=== PATIENT | male | born 1980 | race Caucasian/White ===

== ENCOUNTER → 2016-07-17 | Outpatient (CLI) | payer BC ==
[2016-07-17 07:21] LABS: ALANINE AMINOTRANSFERASE 101 U/L (21-72); ALBUMIN 4.4 g/dL (3.5-5.0); ALKALINE PHOSPHATASE 57 U/L (38-126); ANION GAP 12 (5-19); ASPARTATE AMINO TRANSFERASE 55 U/L (17-59); BILIRUBIN,TOTAL 0.8 mg/dL (0.2-1.3); BLOOD UREA NITROGEN 11 mg/dL (7-20); CALCIUM 9.7 mg/dL (8.4-10.2); CARBON DIOXIDE 29 mmol/L (22-30); CHLORIDE 103 mmol/L (98-107); CHOLESTEROL 159.89 mg/dL (0-200); CREATININE RESULT 0.79 mg/dL (0.52-1.25); Direct HDL 43 mg/dL (>40); GLUCOSE 118 mg/dL (75-110); POTASSIUM 4.5 mmol/L (3.6-5.0); SODIUM 144.1 mmol/L (137-145); TOTAL PROTEIN 7.1 g/dL (6.3-8.2); TRIGLYCERIDES 223 mg/dL (<150); URIC ACID 6.4 mg/dL (3.5-8.5)
[2016-07-17 07:31] LABS: DIRECT LDL 90 mg/dL (<100)
[2016-07-17 07:51] LABS: VLDL CHOLESTEROL 44.6 mg/dL (10-31)
== END ==
LOC: LAB 06:47
PROVIDERS: ATTEND Physician Assistant
DX: E79.0 Hyperuricemia without signs of inflammatory arthritis and tophaceous disease (principal); E78.2 Mixed hyperlipidemia
CPT/HCPCS: 36415; 80053; 80061; 84550

== ENCOUNTER → 2017-11-04 | Outpatient (CLI) | payer BC ==
[2017-11-04 11:32] LABS: ABSOLUTE EOSINOPHILS # (AUTO) 0.2 10^3/uL (0.0-0.6); ABSOLUTE LYMPHOCYTES (AUTO) 1.7 10^3/uL (0.5-4.7); ABSOLUTE MONOCYTES (AUTO) 0.5 10^3/uL (0.1-1.4); ABSOLUTE NEUT (AUTO) 3.7 10^3/uL (1.7-8.2); BASOPHILS % (AUTO) 0.5 % (0-2); EOSINOPHILS % (AUTO) 3.4 % (0-6); HEMATOCRIT 47.2 % (37.9-51.0); HEMOGLOBIN 16.2 g/dL (13.5-17.0); LYMPHOCYTES % (AUTO) 27.4 % (13-45); MEAN CORPUSCULAR HEMOGLOBIN 29.8 pg (27.0-33.4); MEAN CORPUSCULAR HGB CONC 34.2 g/dL (32.0-36.0); MEAN CORPUSCULAR VOLUME 87 fl (80-97); MONOCYTES % (AUTO) 8.4 % (3-13); PLATELET COUNT 186 10^3/uL (150-450); RED BLOOD COUNT 5.42 10^6/uL (4.35-5.55); RED CELL DISTRIBUTION WIDTH 13.3 % (11.5-14.0); SEGMENTED NEUTROPHILS % (AUTO) 60.3 % (42-78); TOTAL CELLS COUNTED % (AUTO) 100 %; WHITE BLOOD COUNT 6.2 10^3/uL (4.0-10.5)
[2017-11-04 11:45] LABS: ALANINE AMINOTRANSFERASE 163 U/L (21-72); ALKALINE PHOSPHATASE 62 U/L (38-126); ANION GAP 14 (5-19); ASPARTATE AMINO TRANSFERASE 85 U/L (17-59); BILIRUBIN,DIRECT 0.3 mg/dL (0.0-0.4); BILIRUBIN,TOTAL 0.8 mg/dL (0.2-1.3); BLOOD UREA NITROGEN 10 mg/dL (7-20); CALCIUM 10.2 mg/dL (8.4-10.2); CARBON DIOXIDE 26 mmol/L (22-30); CHLORIDE 105 mmol/L (98-107); CHOLESTEROL 151.02 mg/dL (0-200); GLUCOSE 125 mg/dL (75-110); POTASSIUM 4.3 mmol/L (3.6-5.0); SODIUM 145.4 mmol/L (137-145); TOTAL PROTEIN 7.6 g/dL (6.3-8.2); TRIGLYCERIDES 155 mg/dL (<150); URIC ACID 6.9 mg/dL (3.5-8.5)
[2017-11-04 11:55] LABS: DIRECT LDL 82 mg/dL (<100)
== END ==
LOC: OD 10:29
PROVIDERS: ATTEND Internal Medicine
DX: E78.2 Mixed hyperlipidemia (principal); E79.0 Hyperuricemia without signs of inflammatory arthritis and tophaceous disease; Z09 Encounter for follow-up examination after completed treatment for conditions other than malignant neoplasm
CPT/HCPCS: 36415; 80053; 80061; 84443; 84550; 85025

== ENCOUNTER → 2018-03-02 | Outpatient (CLI) | payer BC ==
[2018-03-02 10:34] LABS: ALANINE AMINOTRANSFERASE 114 U/L (21-72); ALBUMIN 4.8 g/dL (3.5-5.0); ALKALINE PHOSPHATASE 62 U/L (38-126); ANION GAP 16 (5-19); ASPARTATE AMINO TRANSFERASE 58 U/L (17-59); BILIRUBIN,DIRECT 0.2 mg/dL (0.0-0.4); BILIRUBIN,TOTAL 0.7 mg/dL (0.2-1.3); BLOOD UREA NITROGEN 11 mg/dL (7-20); CALCIUM 10.1 mg/dL (8.4-10.2); CARBON DIOXIDE 24 mmol/L (22-30); CHLORIDE 105 mmol/L (98-107); CHOLESTEROL 209.95 mg/dL (0-200); GLUCOSE 122 mg/dL (75-110); POTASSIUM 4.4 mmol/L (3.6-5.0); SODIUM 144.6 mmol/L (137-145); TOTAL PROTEIN 7.6 g/dL (6.3-8.2); TRIGLYCERIDES 264 mg/dL (<150); URIC ACID 8.8 mg/dL (3.5-8.5)
[2018-03-02 10:46] LABS: DIRECT LDL 118 mg/dL (<100)
[2018-03-02 10:47] LABS: VLDL CHOLESTEROL 52.8 mg/dL (10-31)
--- NOTE | 2018-03-02 12:43 | RADIOLOGY REPORT (SQ) ---
EXAM DESCRIPTION: U/S ABDOMEN COMPLETE W/O DOP COMPLETED DATE/TIME: 03/02/2018 10:38 am REASON FOR STUDY: NONALCOHOLIC STEATOHEPATITIS (BOYD) (K75.81) K75.81 NONALCOHOLIC STEATOHEPATITIS (BOYD) E78.2 MIXED HYPERLIPIDEMIA E79.0 HYPERURICEMIA W/O SIGNS OF INFLAM ARTHRIT AND TOPHACEO COMPARISON: 02/10/2014 TECHNIQUE: Dynamic and static grayscale images acquired of the abdomen and recorded on PACS. Additio nal selected color Doppler and spectral images recorded. LIMITATIONS: None. FINDINGS: PANCREAS: The head and body of the pancreas are of normal echogenicity. The tail is obsc ured by overlying bowel gas. LIVER: Fatty liver, stable finding. The liver measures 17.9 cm in length, at the upper limits of no rmal to slightly prominent in size. LIVER VASCULATURE: Normal directional flow of the main portal vein and hepatic veins. GALLBLADDER: Small 2.8 mm gallbladder polyp versus stone. The gallbladder wall measures 2.8 mm, norm al wall thickness. No pericholecystic fluid. ULTRASOUND-DETECTED FINNEY'S SIGN: Negative. INTRAHEPATIC DUCTS AND COMMON DUCT: CBD measures 3.9 mm in diameter, normal. The intrahepatic ducts normal caliber. No filling defects. INFERIOR VENA CAVA: Normal flow. AORTA: No aneurysm. RIGHT KIDNEY: The right kidney measures 12.3 cm in length, normal size. Normal echogenicity. No solid or suspicious masses. No hydronephrosis. No calcifications. LEFT KIDNEY: The left kidney measures 12.3 cm in length, normal size. Normal echogenicity. No so lid or suspicious masses. No hydronephrosis. No calcifications. SPLEEN: The spleen measures 12.3 cm, within the upper limits of normal size. No solid masses. PERITONEAL AND PLEURAL SPACES: No ascites or effusions. OTHER: No other significant finding. IMPRESSION: 1 Fatty liver, stable finding since the prior study dated 02/10/2014. 2 Small gallstone versus polyp. 3. No evidence of biliary obstruction. 4. The tail of the pancreas is obscured by overlying bowel gas. TECHNICAL DOCUMENTATION: JOB ID: [id number] [employer]- All Rights Reserved Reading location - IP/workstation name: [email or web address]
== END ==
LOC: RAD 09:43
PROVIDERS: ATTEND Physician Assistant
DX: K75.81 Nonalcoholic steatohepatitis (NASH) (principal); E78.2 Mixed hyperlipidemia; E79.0 Hyperuricemia without signs of inflammatory arthritis and tophaceous disease; R94.5 Abnormal results of liver function studies; R73.01 Impaired fasting glucose
CPT/HCPCS: 36415; 76700; 80053; 80061; 83036; 84550; 86235

== ENCOUNTER 2018-06-25 08:12 | Inpatient (IN) | payer BC ==
--- NOTE | 2018-06-25 08:58 | ER Document Report ---
HPI - HPI Time Seen by Provider: 06/25/18 08:29 Pain Level: 3 Notes: 38-year-old male with a history of prediabetes presents the ED with complaints of polydipsia polyuria, dry mouth and insomnia started approximately 2 weeks ago with myalgias that started yesterday. Patient has a history of insomnia however states that his insomnia has become worse take this. Patient reports he has a dry cough. Afebrile. No [id number] medications have been tried. Patient was told by his primary care provider that he is a prediabetic however does not take any medications for this. Denies fevers, chills, chest pain,palpitations, shortness of breath, dyspnea, nausea, vomiting, diarrhea, abdominal pain, hematuria,blurred vision, double vision, loss of vision, speech changes, LH, dizziness, syncope, headaches, wheezing, ST, URI, neck pain, bowel or bladder dysfunction, saddle anesthesia, numbness or tingling in bilateral upper or lower extremities equally, muscle paralysis, weakness in bilateral upper or lower extremities equally or rash. Past Medical History - Social History Smoking Status: Unknown if Ever Smoked Family History: Reviewed & Not Pertinent Patient has suicidal ideation: No Patient has homicidal ideation: No Pulmonary Medical History: Reports: Hx Asthma Neurological Medical History: Reports: Hx Migraine Renal/ Medical History: Denies: Hx Peritoneal Dialysis Past Surgical History: Reports: Hx Oral Surgery - wisdom, Hx Tonsillectomy - Immunizations Hx Diphtheria, Pertussis, Tetanus Vaccination: No Vertical Provider Document - INFECTION CONTROL TRAVEL OUTSIDE OF THE [place] IN LAST 30 DAYS: No Course - Re-evaluation Re-evalutation: 06/25/18 09:03 cbc cmp urinalysis ekg cxr venous blood gas 06/25/18 09:03 - Vital Signs Vital signs: Temp Pulse Resp BP Pulse Ox 97.5 F 124 H 16 151/110 H 98 06/25/18 08:15 06/25/18 08:15 06/25/18 08:15 06/25/18 08:15 06/25/18 08:15 Discharge - Discharge Referrals: ORIN WAY MD [Primary Care Provider] - Follow up as needed
[2018-06-25] MEDS ORDERED: NORMAL SALINE 1000 ML 1,000 ML IV ONE ×2 (08:59→12:45)
--- NOTE | 2018-06-25 09:06 | ER Document Report ---
ED General - General Chief Complaint: Flu Symptoms Stated Complaint: WEAKNESS, DRY MOUTH, CANT SLEEP Time Seen by Provider: 06/25/18 08:29 Mode of Arrival: Ambulatory TRAVEL OUTSIDE OF THE [place] IN LAST 30 DAYS: No - HPI Notes: 38-year-old male with a history of prediabetes presents the ED with complaints of polydipsia polyuria, dry mouth, dry cough and insomnia started approximately 2 weeks ago with myalgias that started yesterday. reports he does not understand why he has dry mouth though he drinks "non-stop" especially over the last two days. no fevers but reports chills. worse with time, nothing makes better. unsure if he has been eating more lately. Pt is concerned about his insomnia. states that his insomnia has become worse over last week. Reports he has a prescription of Ambien but does not take it due to prolonged drowsiness. has not tried any No [id number] medications., Denies chest pain,palpitations, shortness of breath, dyspnea, nausea, vomiting, diarrhea, abdominal pain, hematuria,blurred vision, double vision, loss of vision, speech changes, LH, dizziness, syncope, headaches, wheezing, ST, URI, neck pain, bowel or bladder dysfunction, saddle anesthesia, numbness or tingling in bilateral upper or lower extremities equally, muscle paralysis, rash. - Related Data Allergies/Adverse Reactions: Penicillins Allergy (Verified 12/12/13 07:37) Sulfa (Sulfonamide Antibiotics) Allergy (Verified 12/12/13 07:37) Past Medical History - General Information source: Patient, Relative - Social History Smoking Status: Unknown if Ever Smoked Family History: Reviewed & Not Pertinent Patient has suicidal ideation: No Patient has homicidal ideation: No Pulmonary Medical History: Reports: Hx Asthma Neurological Medical History: Reports: Hx Migraine Renal/ Medical History: Denies: Hx Peritoneal Dialysis Past Surgical History: Reports: Hx Oral Surgery - wisdom, Hx Tonsillectomy - Immunizations Hx Diphtheria, Pertussis, Tetanus Vaccination: No Review of Systems - Review of Systems Constitutional: See HPI, Malaise, Weakness EENT: No symptoms reported Cardiovascular: No symptoms reported Respiratory: See HPI Gastrointestinal: No symptoms reported Genitourinary: See HPI, Frequency Male Genitourinary: No symptoms reported Musculoskeletal: No symptoms reported Skin: No symptoms reported Hematologic/Lymphatic: No symptoms reported Neurological/Psychological: No symptoms reported Physical Exam - Vital signs Vitals: Temp Pulse Resp BP Pulse Ox 97.5 F 124 H 16 151/110 H 98 06/25/18 08:15 06/25/18 08:15 06/25/18 08:15 06/25/18 08:15 06/25/18 08:15 - Notes Notes: PHYSICAL EXAMINATION: GENERAL: Well-appearing, well-nourished and in no acute distress. HEAD: Atraumatic, normocephalic. EYES: Pupils equal round and reactive to light, extraocular movements intact, sclera anicteric, conjunctiva are normal. ENT: Bilateral TMs defusion, intact no erythema. nares patent, boggy bilaterally., oropharynx clear without exudates. dry mucous membranes. NECK: Normal range of motion, supple without lymphadenopathy LUNGS: Breath sounds clear to auscultation bilaterally and equal. No wheezes rales or rhonchi. HEART: Sinus tachycardia. normal rhythm without murmurs ABDOMEN: Soft, nontender, nondistended abdomen. No guarding, no rebound. No masses appreciated. Musculoskeletal: Normal range of motion, no pitting or edema. No cyanosis. NEUROLOGICAL: Cranial nerves grossly intact. Normal speech, normal gait. Normal sensory, motor exams PSYCH: Normal mood, normal affect. SKIN: Warm, Dry, normal turgor, no rashes or lesions noted. Course - Re-evaluation Re-evalutation: 06/25/18 09:05 38-year-old male presents to the ED with sinus tachycardia, afebrile in mild distress. CBC shows a leukocytosis of 15.7 with shift, patient does show to have metabolic acidosis with a pH of 7.16, bicarbonate 10.3 carbon dioxide 29.5, creatinine is 1.31 with a BUN of 29, potassium is 6.9, ALT elevated at 91, initial troponin less than 0.012, CK is 170. Urinalysis shows a glucose >500, ketones, no leuks or nitrates noted. Chest x-ray negative for acute STEMI, no ST segment elevation, serum glucose 864. IV fluids initiated, calcium gluconate given for hyperkalemia as well as insulin drip for hyperglycemia. Patient's tachycardia did decrease after IV hydration. Pt is afebrile. chest x-ray negative for acute pneumonia or other radiological findings. Patient in no acute diabetes ketoacidosis, does not have a history of DKA or diabetes. Patient is not on any oral systemic medication. Consulted with Dr. Rolf Mac, hospitalist for admission into ICU at 1130, will admit to medical unit for further treatment and management of DKA, hypoglycemia,hyperkalemia, tachycardia. Patient made aware of this admission, agreed with plan of care. All questions and concerns answered by this provider. - Vital Signs Vital signs: Temp Pulse Resp BP Pulse Ox 99.0 F 115 H 22 H 141/95 H 97 06/25/18 16:00 06/25/18 13:56 06/25/18 14:00 06/25/18 13:56 06/25/18 14:00 - Laboratory Result Diagrams: 06/25/18 09:54 06/25/18 14:52 Laboratory results interpreted by me: 06/25/18 06/25/18 06/25/18 09:54 09:54 09:54 WBC 15.7 H RBC 5.97 H Hgb 17.9 H Hct 55.1 H Seg Neutrophils % 89.2 H Lymphocytes % 6.0 L Absolute Neutrophils 14.0 H VBG pH 7.16 L* VBG pCO2 29.5 L VBG HCO3 10.3 L Potassium 6.8 H* Chloride 97 L Carbon Dioxide 8 L* Anion Gap 35 H BUN 29 H Creatinine 1.31 H Glucose 864 H* POC Glucose Calcium 11.3 H Phosphorus Magnesium Direct Bilirubin 0.6 H ALT 91 H Alkaline Phosphatase 130 H Total Protein 9.1 H Albumin 5.8 H Urine Glucose (UA) Urine Ketones Urine Blood 06/25/18 06/25/18 06/25/18 09:54 10:28 12:56 WBC RBC Hgb Hct Seg Neutrophils % Lymphocytes % Absolute Neutrophils VBG pH VBG pCO2 VBG HCO3 Potassium Chloride Carbon Dioxide Anion Gap BUN Creatinine Glucose POC Glucose 485 H* Calcium Phosphorus 6.6 H Magnesium 3.2 H Direct Bilirubin ALT Alkaline Phosphatase Total Protein Albumin Urine Glucose (UA) >=500 H Urine Ketones 80 H Urine Blood MODERATE H Discharge - Discharge Clinical Impression: Hyperkalemia DKA (diabetic ketoacidoses) Qualifiers: Diabetes mellitus type: other specified (including TIFFANY) Diabetes mellitus complication detail: without coma Qualified Code(s): E13.10 - Other specified diabetes mellitus with ketoacidosis without coma Condition: Stable Disposition: ADMITTED INPATIENT Admitting Provider: Hospitalist - Dr. Rolf Mac Unit Admitted: ICU
[2018-06-25 09:19] LABS: A TYPE INFLUENZA AG NEGATIVE (NEGATIVE); B INFLUENZA AG NEGATIVE (NEGATIVE)
--- NOTE | 2018-06-25 09:38 | RADIOLOGY REPORT (SQ) ---
EXAM DESCRIPTION: CHEST SINGLE VIEW COMPLETED DATE/TIME: 06/25/2018 9:28 am REASON FOR STUDY: tachycardia, weakness COMPARISON: None. NUMBER OF VIEWS: One view. TECHNIQUE: Single frontal radiographic view of the chest acquired. LIMITATIONS: None. FINDINGS: LUNGS AND PLEURA: No opacities, masses or pneumothorax. No pleural effusion. MEDIASTINUM AND HILAR STRUCTURES: No masses. Contour normal. HEART AND VASCULAR STRUCTURES: Heart normal in size. Normal vasculature. BONES: No acute findings. HARDWARE: None in the chest. OTHER: No other significant finding. IMPRESSION: NO SIGNIFICANT RADIOGRAPHIC FINDING IN THE CHEST. TECHNICAL DOCUMENTATION: JOB ID: [id number] [employer]- All Rights Reserved Reading location - IP/workstation name: [email or web address]
[2018-06-25] MEDS ORDERED: ONDANSETRON HCL INJ/PF 4 MG/2 ML SDV IV ONE (10:07)
[2018-06-25] MEDS ORDERED: NORMAL SALINE 1000 ML 1,000 ML IV PRN ×2 (10:08→11:44)
[2018-06-25 10:15] LABS: ABSOLUTE BASOPHILS # (AUTO) 0.1 10^3/uL (0.0-0.2); ABSOLUTE LYMPHOCYTES (AUTO) 0.9 10^3/uL (0.5-4.7); ABSOLUTE MONOCYTES (AUTO) 0.7 10^3/uL (0.1-1.4); BASOPHILS % (AUTO) 0.5 % (0-2); HEMOGLOBIN 17.9 g/dL (13.5-17.0); MEAN CORPUSCULAR HGB CONC 32.5 g/dL (32.0-36.0); MEAN CORPUSCULAR VOLUME 92 fl (80-97); MONOCYTES % (AUTO) 4.3 % (3-13); PLATELET COUNT 268 10^3/uL (150-450); RED BLOOD COUNT 5.97 10^6/uL (4.35-5.55); RED CELL DISTRIBUTION WIDTH 13.7 % (11.5-14.0); SEGMENTED NEUTROPHILS % (AUTO) 89.2 % (42-78); TOTAL CELLS COUNTED % (AUTO) 100 %; WHITE BLOOD COUNT 15.7 10^3/uL (4.0-10.5)
[2018-06-25 10:19] LABS: HEMATOCRIT 55.1 % (37.9-51.0)
[2018-06-25 10:21] LABS: VENOUS BLOOD BASE EXCESS -16.7 mmol/L; VENOUS BLOOD HCO3 10.3 mmol/L (20-32); VENOUS BLOOD PCO2 29.5 mmHg (35-63)
[2018-06-25 10:27] LABS: VENOUS BLOOD PH 7.16 (7.30-7.42)
[2018-06-25 10:39] LABS: ALANINE AMINOTRANSFERASE 91 U/L (21-72); ALBUMIN 5.8 g/dL (3.5-5.0); ALKALINE PHOSPHATASE 130 U/L (38-126); ASPARTATE AMINO TRANSFERASE 22 U/L (17-59); BILIRUBIN,DIRECT 0.6 mg/dL (0.0-0.4); BILIRUBIN,TOTAL 1.3 mg/dL (0.2-1.3); BLOOD UREA NITROGEN 29 mg/dL (7-20); CALCIUM 11.3 mg/dL (8.4-10.2); CREATINE KINASE 170 U/L (55-170); TOTAL PROTEIN 9.1 g/dL (6.3-8.2)
[2018-06-25 10:44] LABS: CHLORIDE 97 mmol/L (98-107)
[2018-06-25 10:47] LABS: APPEARANCE,URINE CLEAR; BILIRUBIN,URINE NEGATIVE (NEGATIVE); COLOR,URINE COLORLESS; GLUCOSE, URINE >=500 mg/dL (NEGATIVE); KETONES,URINE 80 mg/dL (NEGATIVE); LEUKOCYTE ESTERASE,URINE NEGATIVE (NEGATIVE); NITRITE,URINE NEGATIVE (NEGATIVE); PROTEIN,URINE NEGATIVE (NEGATIVE); URINE SPECIFIC GRAVITY 1.027; UROBILINOGEN,URINE NEGATIVE mg/dL (<2.0)
[2018-06-25 11:10] LABS: CREATINE KINASE MB 1.81 ng/mL (<4.55)
[2018-06-25 11:11] LABS: ANION GAP 35 (5-19)
[2018-06-25 11:15] LABS: CARBON DIOXIDE 8 mmol/L (22-30); GLUCOSE 864 mg/dL (75-110); POTASSIUM 6.8 mmol/L (3.6-5.0)
[2018-06-25 11:16] LABS: TROPONIN I < 0.012 ng/mL
[2018-06-25] MEDS ORDERED: CALCIUM GLUCONATE 1000 MG/10 ML INJ IV ONE (11:18)
[2018-06-25] MEDS ORDERED: INSULIN REG, HUMAN 100 UNIT/ML 3 ML VIAL (PYX) IV ONE ×2 (11:21→11:25)
[2018-06-25 11:50] LABS: PHOSPHORUS 6.6 mg/dL (2.5-4.5)
[2018-06-25] MEDS ORDERED: ONDANSETRON HCL INJ/PF 4 MG/2 ML SDV IV PRN (11:58)
[2018-06-25] MEDS ORDERED: DEXTROSE 50%-WATER 25 GM/50 ML DISP.SYRIN IV PRN ×4 (12:04→12:05)
[2018-06-25] MEDS ORDERED: GLUCAGON,HUMAN RECOMB 1 MG INJ IM PRN ×2 (12:04→12:05)
[2018-06-25] MEDS ORDERED: NORMAL SALINE 100 ML with INSULIN REGULAR, HUMAN 100 UNIT IV PRN ×2 (12:04)
[2018-06-25] MEDS ORDERED: DEXTROSE 40% GEL 15 GM TUBE PO PRN ×4 (12:04→12:05)
--- NOTE | 2018-06-25 12:49 | PDOC H&P ---
History of Present Illness Admission Date/PCP: ORIN WAY MD Patient complains of: Came with complaints of dry mouth and urinating a lot. History of Present Illness: ROSA NICHOLS is a 38 year old male with history of asthma, restless leg syndrome, gout, hyperlipidemia, insomnia notably without any history of diabetes , came to the emergency room with complaints of severe dry mouth and going to the restroom around the clock for the last few days. He is given the history of having a head cold 3-1/2 weeks ago and started using Sudafed/Mucinex as recommended he got better but the cough persisted and went to urgent care 2 weeks ago he was started on 40 mg prednisone for 5 days and given Flonase after that he is continued to have insomnia dry mouth being like how developed sores on the tongue, denies any fever denies any chills complaint of nausea denies any vomiting and diarrhea associated with the very poor appetite decided to came to the emergency room to today for further management. Denies any urinary tract infection. Has any chest pains. Denies any headaches dizziness syncope. ER physician did the blood work found to have a blood sugar of 864 he was given 2 L of IV fluids and potassium is found out to be 6.8 he was given 10 units of regular insulin along with calcium gluconate and called for admission. When I went there patient was without any IV fluids and not on insulin drip. At the time of examination patient has difficulty in talking because of severe dryness of the mouth and but otherwise is alert and awake oriented. Past Medical History Pulmonary Medical History: Reports: Asthma Neurological Medical History: Reports: Migraine Endocrine Medical History: Reports: Other - Hyperlipidemia Musculoskeltal Medical History: Reports: Gout Psychiatric Medical History: Reports: Other - Insomnia Past Surgical History Past Surgical History: Reports: Tonsillectomy, Other - wisdom tooth removal Social History Smoking Status: Never Smoker Drugs: None Family History Family History: Reviewed & Not Pertinent Parental Family History Reviewed: Yes - Mother with history of diabetes mellitus hypertension and breast cancer Children Family History Reviewed: Yes Sibling(s) Family History Reviewed.: Yes Medication/Allergy Home Medications: Pirbuterol Acetate [Maxair Autohaler] 14 gm IH Q6H PRN 05/10/12 Allopurinol 100 tab PO DAILY 12/12/13 Atorvastatin Calcium [Lipitor 10 mg Tablet] 10 mg PO QHS 12/12/13 Loratadine [Claritin 10 mg Tablet] 10 mg PO DAILY 12/12/13 Oxycodone HCl/Acetaminophen [Percocet 5-325 mg Tablet] 1 - 2 tab PO ASDIR PRN # 25 tablet 12/12/13 Allergies/Adverse Reactions: Penicillins Allergy (Verified 12/12/13 07:37) Sulfa (Sulfonamide Antibiotics) Allergy (Verified 12/12/13 07:37) Review of Systems Constitutional: PRESENT: fatigue, weakness. ABSENT: chills, fever(s), headache( s) Eyes: ABSENT: visual disturbances Ears: ABSENT: hearing changes Nose, Mouth, and Throat: PRESENT: other - Complains of severe dry mouth requesting for ice chips Cardiovascular: ABSENT: chest pain, dyspnea on exertion Respiratory: PRESENT: cough. ABSENT: dyspnea Gastrointestinal: PRESENT: nausea. ABSENT: abdominal pain, diarrhea, vomiting Genitourinary: PRESENT: other - Patient complains of urination on a continuous basis. Neurological: ABSENT: abnormal gait, abnormal speech, confusion, dizziness, focal weakness, syncope Psychiatric: ABSENT: anxiety, depression, homidical ideation, suicidal ideation Endocrine: PRESENT: polyphagia, polyuria Physical Exam Vital Signs: Temp Pulse Resp BP Pulse Ox 97.5 F 124 H 17 142/96 H 97 06/25/18 08:15 06/25/18 08:15 06/25/18 11:01 06/25/18 11:01 06/25/18 11:01 Intake & Output 06/24/18 06/25/18 06/26/18 06:59 06:59 06:59 Intake Total 1999 Balance 1999 Weight 102 kg General appearance: PRESENT: mild distress Head exam: PRESENT: atraumatic Eye exam: PRESENT: PERRLA Mouth exam: PRESENT: dry mucosa, other - Dry mucosa with the sores on the tongue Neck exam: ABSENT: carotid bruit, JVD, lymphadenopathy, thyromegaly Respiratory exam: PRESENT: clear to auscultation carolyn. ABSENT: rales, rhonchi, wheezes GI/Abdominal exam: PRESENT: normal bowel sounds, soft. ABSENT: distended, guarding, mass, organolmegaly, rebound, tenderness Neurological exam: PRESENT: alert, awake, oriented to person, oriented to place , oriented to time, oriented to situation, CN II-XII grossly intact. ABSENT: motor sensory deficit Psychiatric exam: PRESENT: appropriate affect, normal mood. ABSENT: homicidal ideation, suicidal ideation Results Laboratory Results: 06/25/18 09:54 06/25/18 09:54 06/25/18 06/25/18 06/25/18 09:54 09:54 09:54 WBC 15.7 H RBC 5.97 H Hgb 17.9 H Hct 55.1 H MCV 92 MCH 30.0 MCHC 32.5 RDW 13.7 Plt Count 268 Seg Neutrophils % 89.2 H Lymphocytes % 6.0 L Monocytes % 4.3 Eosinophils % 0.0 Basophils % 0.5 Absolute Neutrophils 14.0 H Absolute Lymphocytes 0.9 Absolute Monocytes 0.7 Absolute Eosinophils 0.0 Absolute Basophils 0.1 VBG pH 7.16 L* VBG pCO2 29.5 L VBG HCO3 10.3 L VBG Base Excess -16.7 Sodium 140.0 Potassium 6.8 H* Chloride 97 L Carbon Dioxide 8 L* Anion Gap 35 H BUN 29 H Creatinine 1.31 H Est GFR ( Amer) > 60 Est GFR (Non-Af Amer) > 60 Glucose 864 H* Calcium 11.3 H Phosphorus Magnesium Total Bilirubin 1.3 AST 22 ALT 91 H Alkaline Phosphatase 130 H Total Protein 9.1 H Albumin 5.8 H Urine Color Urine Appearance Urine pH Ur Specific [place] Urine Protein Urine Glucose (UA) Urine Ketones Urine Blood Urine Nitrite Ur Leukocyte Esterase Urine WBC (Auto) Urine RBC (Auto) 06/25/18 06/25/18 09:54 10:28 WBC RBC Hgb Hct MCV MCH MCHC RDW Plt Count Seg Neutrophils % Lymphocytes % Monocytes % Eosinophils % Basophils % Absolute Neutrophils Absolute Lymphocytes Absolute Monocytes Absolute Eosinophils Absolute Basophils VBG pH VBG pCO2 VBG HCO3 VBG Base Excess Sodium Potassium Chloride Carbon Dioxide Anion Gap BUN Creatinine Est GFR ( Amer) Est GFR (Non-Af Amer) Glucose Calcium Phosphorus 6.6 H Magnesium 3.2 H Total Bilirubin AST ALT Alkaline Phosphatase Total Protein Albumin Urine Color COLORLESS Urine Appearance CLEAR Urine pH 5.0 Ur Specific [place] 1.027 Urine Protein NEGATIVE Urine Glucose (UA) >=500 H Urine Ketones 80 H Urine Blood MODERATE H Urine Nitrite NEGATIVE Ur Leukocyte Esterase NEGATIVE Urine WBC (Auto) 1 Urine RBC (Auto) 0 06/25/18 06/25/18 09:54 09:54 Creatine Kinase 170 CK-MB (CK-2) 1.81 Troponin I < 0.012 Impressions: Chest X-Ray 06/25/18 08:59 IMPRESSION: NO SIGNIFICANT RADIOGRAPHIC FINDING IN THE CHEST. Assessment & Plan - Diagnosis (1) DKA (diabetic ketoacidoses) Qualifiers: Diabetes mellitus type: other specified (including TIFFANY) Diabetes mellitus complication detail: without coma Qualified Code(s): E13.10 - Other specified diabetes mellitus with ketoacidosis without coma Is this a current diagnosis for this admission?: Yes Plan: 06/25/2018 38-year-old male without any history of diabetes mellitus came with complaints of polyuria and polydipsia blood sugars are found to be in the 864.. Patient was in the DKA with metabolic acidosis with bicarb of 8 and potassium of 6.8. In the emergency room he was given 2 L of normal saline and 10 units of regular insulin subcu along with calcium gluconate. I am going to put him in ICU. He is going to be inpatient. He is going to be n.p.o. I started him on IV fluids normal saline at 120 cc/h. Insulin drip was started as per the protocol. He is going to be on GI prophylaxis with famotidine 20 mg IV twice daily. I am going to check repeat potassium around 4 PM today. CMP was requested every 6 hours. Requested for ABG stat. She was started on sodium bicarb infusion 100 mEq of 2 samples in sterile water at 150 cc/h. Going to check the blood sugars as per the protocol every 1 hour. Nichols catheter was placed. Blood cultures sent. Started on levofloxacin 500 mg IV daily. Patient condition is critical. (2) Hyperkalemia Is this a current diagnosis for this admission?: Yes Plan: 06/25/2018 patient's potassium is 6.8. He was given insulin 10 units subcu. And given calcium gluconate. We are going to repeat the potassium level this evening. And we also going to check CMP on regular basis. EKG did not show any peaked T waves. Cardiac enzymes x3 was requested. (3) Acute renal failure Is this a current diagnosis for this admission?: Yes Plan: 06/25/2018-patient's baseline creatinine is around 0.7. Today's creatinine is 1.31. AKA may be secondary to uncontrolled diabetes with severe dehydration. Going to check renal panel on daily basis. (4) Metabolic acidosis due to diabetes mellitus Is this a current diagnosis for this admission?: Yes Plan: 06/25/2018-80 VBG done in the ER shows pH is 7.16 bicarb is 10.5 PCO2 29. I requested for ABG stat. Patient is going to get samples of 100 mg sodium bicarb each in sterile water at the rate of 150 cc/h. I am going to repeat the ABG later on this evening. (5) Combined hyperlipidemia Is this a current diagnosis for this admission?: Yes Plan: 06/25/2018 patient is given the history of mixed hyperlipidemia on pravastatin 10 mg p.o. nightly at home. He could keep the patient n.p.o. while he was in DKA. Once he is able to tolerate the oral diet I am going to resume the pravastatin. (6) Asthma Qualifiers: Asthma severity: unspecified severity Is this a current diagnosis for this admission?: Yes Plan: 06/25/2018 patient is given the history of asthma he is using albuterol 2 puffs 4 times daily as needed at home. Patient is not in respiratory distress. On examination chest was clear. (7) Gout Is this a current diagnosis for this admission?: Yes Plan: 06/25/2018-patient is given the history of gout, he takes allopurinol at home. No complaints of any gout symptoms during the examination. (8) Restless leg syndrome Is this a current diagnosis for this admission?: Yes Plan: 06/25/2018 patient has history of likely restless leg syndrome, he is on Mirapex 0.5 mg at bedtime. Going to hold it for now. - Time Time Spent: Greater than 70 Minutes Critical Time spent with patient: 15-24 minutes Medications reviewed and adjusted accordingly: Yes Anticipated discharge: Home
[2018-06-25] MEDS ORDERED: ENOXAPARIN SODIUM INJ 40 MG/0.4 ML DISP.SYRIN SUBCUT ONE (13:00)
[2018-06-25] MEDS ORDERED: FAMOTIDINE INJ/PF 20 MG/2 ML SDV IV ONE (13:00)
[2018-06-25] MEDS: WATER FOR INJECTION,STERILE 1,000 ML with SODIUM BICARBONATE 100 MEQ IV PRN ×4 (14:05→23:32)
[2018-06-25] MEDS: NORMAL SALINE 1000 ML 1,000 ML IV PRN ×2 (14:06→22:23)
[2018-06-25] MEDS: LEVOFLOXACIN 500 MG/D5W RTU 500 MG/100 ML RTUPB IV SCH (15:00)
[2018-06-25] MEDS ORDERED: LORAZEPAM INJ 2 MG/1 ML VIAL IV PRN (15:04)
[2018-06-25 15:37] LABS: ALANINE AMINOTRANSFERASE 76 U/L (21-72); ALBUMIN 4.9 g/dL (3.5-5.0); ALKALINE PHOSPHATASE 112 U/L (38-126); ASPARTATE AMINO TRANSFERASE 17 U/L (17-59); BILIRUBIN,DIRECT 0.4 mg/dL (0.0-0.4); BILIRUBIN,TOTAL 0.8 mg/dL (0.2-1.3); BLOOD UREA NITROGEN 24 mg/dL (7-20); CALCIUM 9.9 mg/dL (8.4-10.2); TOTAL PROTEIN 7.7 g/dL (6.3-8.2)
[2018-06-25 15:42] LABS: CHLORIDE 111 mmol/L (98-107); SODIUM 144.8 mmol/L (137-145)
[2018-06-25 15:45] LABS: ANION GAP 26 (5-19)
[2018-06-25 15:46] LABS: CARBON DIOXIDE 8 mmol/L (22-30); GLUCOSE 443 mg/dL (75-110)
[2018-06-25 16:04] LABS: ARTERIAL BLOOD BASE EXCESS -16.9 mmol/L; ARTERIAL BLOOD H2CO3 0.57 mmol/L (1.05-1.35); ARTERIAL BLOOD HCO3 7.9 mmol/L (20-24); ARTERIAL BLOOD O2 SATURATION 96.6 % (94-98); ARTERIAL BLOOD PH 7.24 (7.35-7.45); ARTERIAL BLOOD PO2 99.2 mmHg (80-100); ARTERIAL BLOOD TOTAL CO2 8.5 mmol/L (23-27)
[2018-06-25 16:08] LABS: ARTERIAL BLOOD FIO2 ROOM AIR; ARTERIAL BLOOD PCO2 19.1 mmHg (35-45)
[2018-06-25 17:31] LABS: POTASSIUM 5.4 mmol/L (3.6-5.0)
[2018-06-25 17:38] LABS: BLOOD UREA NITROGEN 24 mg/dL (7-20); POTASSIUM 5.3 mmol/L (3.6-5.0)
[2018-06-25 17:44] LABS: CHLORIDE 112 mmol/L (98-107)
[2018-06-25 17:49] LABS: CARBON DIOXIDE 10 mmol/L (22-30)
[2018-06-25 17:50] LABS: GLUCOSE 414 mg/dL (75-110)
[2018-06-25 17:54] LABS: ANION GAP 25 (5-19)
--- NOTE | 2018-06-25 21:23 | EKG REPORT ---
SEVERITY:- OTHERWISE NORMAL ECG - SINUS TACHYCARDIA : Confirmed by: Xena Doe MD 25-Jun-2018 21:22:21
--- NOTE | 2018-06-25 21:23 | EKG REPORT ---
SEVERITY:- OTHERWISE NORMAL ECG - SINUS TACHYCARDIA : Confirmed by: Xena Doe MD 25-Jun-2018 21:22:24
[2018-06-25 22:14] LABS: ARTERIAL BLOOD BASE EXCESS -10.7 mmol/L; ARTERIAL BLOOD H2CO3 0.77 mmol/L (1.05-1.35); ARTERIAL BLOOD HCO3 13.2 mmol/L (20-24); ARTERIAL BLOOD O2 SATURATION 95.4 % (94-98); ARTERIAL BLOOD PCO2 25.7 mmHg (35-45); ARTERIAL BLOOD PH 7.33 (7.35-7.45)
[2018-06-25] MEDS: FAMOTIDINE INJ/PF 20 MG/2 ML SDV IV SCH (22:17)
[2018-06-25 22:27] LABS: ARTERIAL BLOOD FIO2 24%
[2018-06-25 22:52] LABS: ALANINE AMINOTRANSFERASE 66 U/L (21-72); ALBUMIN 4.6 g/dL (3.5-5.0); ALKALINE PHOSPHATASE 91 U/L (38-126); ASPARTATE AMINO TRANSFERASE 21 U/L (17-59); BILIRUBIN,DIRECT 0.4 mg/dL (0.0-0.4); BILIRUBIN,TOTAL 1.1 mg/dL (0.2-1.3); BLOOD UREA NITROGEN 24 mg/dL (7-20); CALCIUM 9.5 mg/dL (8.4-10.2); GLUCOSE 245 mg/dL (75-110); TOTAL PROTEIN 7.4 g/dL (6.3-8.2)
[2018-06-25 23:15] LABS: ANION GAP 19 (5-19); CARBON DIOXIDE 14 mmol/L (22-30); CHLORIDE 116 mmol/L (98-107); POTASSIUM 4.7 mmol/L (3.6-5.0); SODIUM 149.3 mmol/L (137-145)
[2018-06-26] MEDS ORDERED: GLUCAGON,HUMAN RECOMB 1 MG INJ IM PRN (00:38)
[2018-06-26] MEDS ORDERED: DEXTROSE 50%-WATER 25 GM/50 ML DISP.SYRIN IV PRN ×2 (00:38)
[2018-06-26] MEDS ORDERED: DEXTROSE 40% GEL 15 GM TUBE PO PRN ×2 (00:38)
[2018-06-26 04:35] LABS: ALANINE AMINOTRANSFERASE 54 U/L (21-72); ALKALINE PHOSPHATASE 81 U/L (38-126); ANION GAP 14 (5-19); ASPARTATE AMINO TRANSFERASE 21 U/L (17-59); BILIRUBIN,DIRECT 0.3 mg/dL (0.0-0.4); BLOOD UREA NITROGEN 25 mg/dL (7-20); CARBON DIOXIDE 17 mmol/L (22-30); CHLORIDE 115 mmol/L (98-107); GLUCOSE 165 mg/dL (75-110); POTASSIUM 4.1 mmol/L (3.6-5.0); SODIUM 145.8 mmol/L (137-145); TOTAL PROTEIN 6.6 g/dL (6.3-8.2)
[2018-06-26] MEDS: WATER FOR INJECTION,STERILE 1,000 ML with SODIUM BICARBONATE 100 MEQ IV PRN ×2 (06:27)
[2018-06-26] MEDS: NORMAL SALINE 1000 ML 1,000 ML IV PRN (06:28)
[2018-06-26] MEDS ORDERED: ALBUTEROL SULFATE HFA (90 MCG/PUFF) 200 PUFF/8.5 GM MDI IH PRN (08:46)
[2018-06-26] MEDS ORDERED: (PENDING PHARMACY ID) (Zolpidem Tartrate [Ambien] 10 MG) PO PRN (08:46)
--- NOTE | 2018-06-26 08:58 | PDOC PROGRESS REPORT ---
Subjective Progress Note for:: 06/26/18 Subjective:: 38-year-old male with a history of asthma hyperlipidemia no history of diabetes mellitus admitted in DKA. His blood sugars are improved improved last night he is going to have a diabetic diet from this morning .we turned off the insulin drip , still on IV fluids at 150 cc/h . Bicarb drip will be stopped today. Patient has no complaints today. He said he is feeling much better. Reason For Visit: DKA Physical Exam Vital Signs: Temp Pulse Resp BP Pulse Ox 98.6 F 80 15 112/71 97 06/26/18 08:00 06/26/18 07:36 06/26/18 06:00 06/26/18 06:00 06/26/18 06:00 Intake & Output 06/25/18 06/26/18 06/27/18 06:59 06:59 06:59 Intake Total 5265 252 Output Total 3050 0 Balance 2215 252 Weight 107.4 kg General appearance: PRESENT: no acute distress Eye exam: PRESENT: PERRLA Neck exam: ABSENT: carotid bruit, JVD, lymphadenopathy, thyromegaly Respiratory exam: PRESENT: clear to auscultation carolyn. ABSENT: rales, rhonchi, wheezes Cardiovascular exam: PRESENT: RRR. ABSENT: diastolic murmur, rubs, systolic murmur GI/Abdominal exam: PRESENT: normal bowel sounds, soft. ABSENT: distended, guarding, mass, organolmegaly, rebound, tenderness Neurological exam: PRESENT: alert, awake, oriented to person, oriented to place , oriented to time, oriented to situation, CN II-XII grossly intact. ABSENT: motor sensory deficit Psychiatric exam: PRESENT: appropriate affect, normal mood. ABSENT: homicidal ideation, suicidal ideation Results Laboratory Results: 06/26/18 04:01 06/25/18 06/25/18 06/25/18 14:52 14:52 15:55 Carbonic Acid 0.57 L HCO3/H2CO3 Ratio 13:1 ABG pH 7.24 L ABG pCO2 19.1 L* ABG pO2 99.2 ABG HCO3 7.9 L ABG O2 Saturation 96.6 ABG Base Excess -16.9 FiO2 ROOM AIR Sodium 144.8 Potassium 5.4 H D Chloride 111 H Carbon Dioxide 8 L* Anion Gap 26 H BUN 24 H Creatinine 0.88 Est GFR ( Amer) > 60 Est GFR (Non-Af Amer) > 60 Glucose 443 H* Lactic Acid 1.3 Calcium 9.9 Total Bilirubin 0.8 AST 17 ALT 76 H Alkaline Phosphatase 112 Total Protein 7.7 Albumin 4.9 06/25/18 06/25/18 06/25/18 16:25 21:30 22:25 Carbonic Acid 0.77 L HCO3/H2CO3 Ratio 17:1 ABG pH 7.33 L ABG pCO2 25.7 L ABG pO2 81.0 ABG HCO3 13.2 L ABG O2 Saturation 95.4 ABG Base Excess -10.7 FiO2 24% Sodium 147.0 H 149.3 H Potassium 5.3 H 4.7 Chloride 112 H 116 H Carbon Dioxide 10 L* 14 L Anion Gap 25 H 19 BUN 24 H 24 H Creatinine 0.82 0.70 Est GFR ( Amer) > 60 > 60 Est GFR (Non-Af Amer) > 60 > 60 Glucose 414 H* 245 H Lactic Acid Calcium 10.0 9.5 Total Bilirubin 1.1 AST 21 ALT 66 Alkaline Phosphatase 91 Total Protein 7.4 Albumin 4.6 06/26/18 04:01 Carbonic Acid HCO3/H2CO3 Ratio ABG pH ABG pCO2 ABG pO2 ABG HCO3 ABG O2 Saturation ABG Base Excess FiO2 Sodium 145.8 H Potassium 4.1 Chloride 115 H Carbon Dioxide 17 L Anion Gap 14 BUN 25 H Creatinine 0.59 Est GFR ( Amer) > 60 Est GFR (Non-Af Amer) > 60 Glucose 165 H Lactic Acid Calcium 9.0 Total Bilirubin 1.0 AST 21 ALT 54 Alkaline Phosphatase 81 Total Protein 6.6 Albumin 4.0 06/25/18 06/25/18 06/26/18 16:25 22:25 04:01 CK-MB (CK-2) 1.79 1.64 1.69 Impressions: Chest X-Ray 06/25/18 08:59 IMPRESSION: NO SIGNIFICANT RADIOGRAPHIC FINDING IN THE CHEST. Assessment & Plan - Diagnosis (1) DKA (diabetic ketoacidoses) Qualifiers: Diabetes mellitus type: other specified (including TIFFANY) Diabetes mellitus complication detail: without coma Qualified Code(s): E13.10 - Other specified diabetes mellitus with ketoacidosis without coma Is this a current diagnosis for this admission?: Yes Plan: 06/25/2018 38-year-old male without any history of diabetes mellitus came with complaints of polyuria and polydipsia blood sugars are found to be in the 864.. Patient was in the DKA with metabolic acidosis with bicarb of 8 and potassium of 6.8. In the emergency room he was given 2 L of normal saline and 10 units of regular insulin subcu along with calcium gluconate. I am going to put him in ICU. He is going to be inpatient. He is going to be n.p.o. I started him on IV fluids normal saline at 120 cc/h. Insulin drip was started as per the protocol. He is going to be on GI prophylaxis with famotidine 20 mg IV twice daily. I am going to check repeat potassium around 4 PM today. CMP was requested every 6 hours. Requested for ABG stat. She was started on sodium bicarb infusion 100 mEq of 2 samples in sterile water at 150 cc/h. Going to check the blood sugars as per the protocol every 1 hour. Harley catheter was placed. Blood cultures sent. Started on levofloxacin 500 mg IV daily. Patient condition is critical. 06/26/2018-patient is admitted with a DKA with blood sugars of 864, bicarb is 8. His blood sugars are improved to 155 this morning. Bicarb was improved to 17. He is off the insulin drip at this time. Was started on Lantus 15 units twice a day and is also on insulin sliding scale. We are going to start him on a diabetic diet today plan to transfer him to the medical floor. Urine analysis shows large ketones at the time of admission. We started him on antibiotics thinking may be the infection triggered the DKA. He is afebrile so far. Hemoglobin A1c came back at 11.9. I am planning to increase the Lantus to 30 units twice a day. We are going to titrate the insulin requirements on daily basis. I think is stable enough to go to the medical floor. Blood cultures are pending. Dietary consult was requested. Diet exercise weight loss was advised. (2) Hyperkalemia Is this a current diagnosis for this admission?: Yes Plan: 06/25/2018 patient's potassium is 6.8. He was given insulin 10 units subcu. And given calcium gluconate. We are going to repeat the potassium level this evening. And we also going to check CMP on regular basis. EKG did not show any peaked T waves. Cardiac enzymes x3 was requested. 06/26/2018 patient is admitted with hyperkalemia with potassium is 6.8. Today' s potassium is 4.1. Hyperkalemia is resolved. The going to continue to monitor the potassium levels on daily basis to prevent hypokalemia. (3) Acute renal failure Is this a current diagnosis for this admission?: Yes Plan: 06/25/2018-patient's baseline creatinine is around 0.7. Today's creatinine is 1.31. AKA may be secondary to uncontrolled diabetes with severe dehydration. Going to check renal panel on daily basis. 06/26/2018 admission creatinine is 1.31. With IV fluids it was improved to 0.6. GFR is more than 60. My opinion AK has resolved. I am going to start him on lisinopril because he is a diabetic to prevent further renal damage. (4) Metabolic acidosis due to diabetes mellitus Is this a current diagnosis for this admission?: Yes Plan: 06/25/2018-VBG done in the ER shows pH is 7.16 bicarb is 10.5 PCO2 29. I requested for ABG stat. Patient is going to get samples of 100 mg sodium bicarb each in sterile water at the rate of 150 cc/h. I am going to repeat the ABG later on this evening. 06/26/2018 initial VBG send ABGs done in the ER shows bicarb of 8. He was in metabolic acidosis secondary to uncontrolled diabetes spelled. He was started on IV bicarb and got total of 2 A of 100 mg. Bicarb improved to 17. Latest ABG shows pH of 7.33. PCO2 25. PCO2 is 81. Bicarb is 13.2. We are going to continue to closely monitor the bicarb. (5) Combined hyperlipidemia Is this a current diagnosis for this admission?: Yes Plan: 06/25/2018 patient is given the history of mixed hyperlipidemia on pravastatin 10 mg p.o. nightly at home. He could keep the patient n.p.o. while he was in DKA. Once he is able to tolerate the oral diet I am going to resume the pravastatin. 06/26/2018 patient is given the history of hyperlipidemia, is on pravastatin 12 mg p.o. nightly at home. We plan to resume the home medication. (6) Asthma Qualifiers: Asthma severity: unspecified severity Is this a current diagnosis for this admission?: Yes Plan: 06/25/2018 patient is given the history of asthma he is using albuterol 2 puffs 4 times daily as needed at home. Patient is not in respiratory distress. On examination chest was clear. All 2017 no complaints of any asthma problems during the hospital stay. We are going to resume his home medications. (7) Gout Is this a current diagnosis for this admission?: Yes Plan: 06/25/2018-patient is given the history of gout, he takes allopurinol at home. No complaints of any gout symptoms during the examination. 06/26/2018 patient is taking allopurinol at home for gout we are going to resume the medication today. (8) Restless leg syndrome Is this a current diagnosis for this admission?: Yes Plan: 06/25/2018 patient has history of likely restless leg syndrome, he is on Mirapex 0.5 mg at bedtime. Going to hold it for now. 06/26/2018 patient is on Mirapex at home, it is going to be restarted today. - Time Time Spent with patient: 15-24 minutes Medications reviewed and adjusted accordingly: Yes Anticipated discharge: Home
[2018-06-26] MEDS: INSULIN LISPRO 100 UNIT/ML 3 ML VIAL SUBCUT PRN ×4 (09:17→22:47)
[2018-06-26] MEDS ORDERED: (PENDING PHARMACY ID) (Omega-3 Fatty Acids/Fish Oil [Omega 3 Fish Oil Softgel] 1 EACH) PO SCH (10:00)
[2018-06-26] MEDS ORDERED: INSULIN GLARGINE,HUM.REC.ANLOG 300 UNIT/3 ML INSULN.PEN SUBCUT SCH (10:00)
[2018-06-26] MEDS ORDERED: INSULIN GLARGINE,HUM.REC.ANLOG 1,000 UNIT/10 ML UNIT SUBCUT SCH ×2 (10:00→22:00)
[2018-06-26] MEDS ORDERED: MULTIVITAMIN STRESS FORMULA PO SCH (10:00)
[2018-06-26] MEDS: FLUTICASONE NASAL SPRAY 50 MCG/SPRY 120 SPRAY/16 GM NASL SCH (10:00)
[2018-06-26] MEDS: ENOXAPARIN SODIUM INJ 40 MG/0.4 ML DISP.SYRIN SUBCUT SCH (10:03)
[2018-06-26] MEDS: FAMOTIDINE INJ/PF 20 MG/2 ML SDV IV SCH ×2 (10:03→22:48)
[2018-06-26] MEDS: LISINOPRIL 5 MG TABLET PO SCH (10:04)
[2018-06-26] MEDS: ALLOPURINOL 100 MG TABLET PO SCH (10:04)
[2018-06-26] MEDS: MULTIVIT-STRESS FORMULA/ZINC TABLET PO SCH (10:13)
[2018-06-26] MEDS: OMEGA-3 ACID ETHYL ESTERS 1 GM CAPSULE PO SCH (10:13)
[2018-06-26 11:29] LABS: ALANINE AMINOTRANSFERASE 51 U/L (21-72); ALBUMIN 3.4 g/dL (3.5-5.0); ALKALINE PHOSPHATASE 73 U/L (38-126); ANION GAP 17 (5-19); ASPARTATE AMINO TRANSFERASE 29 U/L (17-59); BILIRUBIN,DIRECT 0.6 mg/dL (0.0-0.4); BILIRUBIN,TOTAL 1.3 mg/dL (0.2-1.3); BLOOD UREA NITROGEN 25 mg/dL (7-20); CALCIUM 8.6 mg/dL (8.4-10.2); CARBON DIOXIDE 15 mmol/L (22-30); CHLORIDE 106 mmol/L (98-107); GLUCOSE 360 mg/dL (75-110); POTASSIUM 4.1 mmol/L (3.6-5.0); SODIUM 137.5 mmol/L (137-145); TOTAL PROTEIN 5.6 g/dL (6.3-8.2)
[2018-06-26] MEDS: LEVOFLOXACIN 500 MG/D5W RTU 500 MG/100 ML RTUPB IV SCH (13:38)
[2018-06-26 17:46] LABS: ALANINE AMINOTRANSFERASE 57 U/L (21-72); ALBUMIN 3.5 g/dL (3.5-5.0); ALKALINE PHOSPHATASE 75 U/L (38-126); ANION GAP 14 (5-19); ASPARTATE AMINO TRANSFERASE 30 U/L (17-59); BILIRUBIN,DIRECT 0.4 mg/dL (0.0-0.4); BILIRUBIN,TOTAL 0.7 mg/dL (0.2-1.3); BLOOD UREA NITROGEN 24 mg/dL (7-20); CALCIUM 8.9 mg/dL (8.4-10.2); CARBON DIOXIDE 17 mmol/L (22-30); CHLORIDE 104 mmol/L (98-107); GLUCOSE 306 mg/dL (75-110); POTASSIUM 3.5 mmol/L (3.6-5.0); SODIUM 135.2 mmol/L (137-145); TOTAL PROTEIN 5.9 g/dL (6.3-8.2)
[2018-06-26] MEDS ORDERED: ATORVASTATIN CALCIUM 10 MG TABLET PO SCH (22:00)
[2018-06-26] MEDS: ZOLPIDEM TARTRATE 5 MG TABLET PO PRN (22:49)
[2018-06-26] MEDS: PRAMIPEXOLE DI-HCL 0.25 MG TABLET PO SCH (22:49)
[2018-06-26 23:02] LABS: ALANINE AMINOTRANSFERASE 51 U/L (21-72); ALBUMIN 3.7 g/dL (3.5-5.0); ALKALINE PHOSPHATASE 80 U/L (38-126); ANION GAP 14 (5-19); ASPARTATE AMINO TRANSFERASE 26 U/L (17-59); BILIRUBIN,DIRECT 0.3 mg/dL (0.0-0.4); BILIRUBIN,TOTAL 0.6 mg/dL (0.2-1.3); BLOOD UREA NITROGEN 22 mg/dL (7-20); CALCIUM 9.1 mg/dL (8.4-10.2); CARBON DIOXIDE 16 mmol/L (22-30); CHLORIDE 104 mmol/L (98-107); GLUCOSE 280 mg/dL (75-110); POTASSIUM 3.9 mmol/L (3.6-5.0); SODIUM 134.2 mmol/L (137-145)
[2018-06-27 07:08] LABS: ABSOLUTE EOSINOPHILS # (AUTO) 0.1 10^3/uL (0.0-0.6); ABSOLUTE MONOCYTES (AUTO) 0.8 10^3/uL (0.1-1.4); ABSOLUTE NEUT (AUTO) 5.2 10^3/uL (1.7-8.2); BASOPHILS % (AUTO) 0.3 % (0-2); EOSINOPHILS % (AUTO) 1.3 % (0-6); HEMATOCRIT 39.3 % (37.9-51.0); LYMPHOCYTES % (AUTO) 32.7 % (13-45); MEAN CORPUSCULAR HEMOGLOBIN 30.6 pg (27.0-33.4); MEAN CORPUSCULAR HGB CONC 35.6 g/dL (32.0-36.0); MONOCYTES % (AUTO) 9.1 % (3-13); PLATELET COUNT 163 10^3/uL (150-450); RED BLOOD COUNT 4.57 10^6/uL (4.35-5.55); RED CELL DISTRIBUTION WIDTH 12.9 % (11.5-14.0); SEGMENTED NEUTROPHILS % (AUTO) 56.6 % (42-78); TOTAL CELLS COUNTED % (AUTO) 100 %; WHITE BLOOD COUNT 9.2 10^3/uL (4.0-10.5)
[2018-06-27 07:18] LABS: ALANINE AMINOTRANSFERASE 45 U/L (21-72); ALBUMIN 3.3 g/dL (3.5-5.0); ALKALINE PHOSPHATASE 72 U/L (38-126); ANION GAP 10 (5-19); ASPARTATE AMINO TRANSFERASE 25 U/L (17-59); BILIRUBIN,DIRECT 0.3 mg/dL (0.0-0.4); BLOOD UREA NITROGEN 21 mg/dL (7-20); CALCIUM 8.9 mg/dL (8.4-10.2); CARBON DIOXIDE 19 mmol/L (22-30); CHLORIDE 106 mmol/L (98-107); GLUCOSE 222 mg/dL (75-110); MEAN CORPUSCULAR VOLUME 86 fl (80-97); POTASSIUM 3.5 mmol/L (3.6-5.0); SODIUM 135.2 mmol/L (137-145); TOTAL PROTEIN 5.6 g/dL (6.3-8.2)
--- NOTE | 2018-06-27 08:14 | PDOC PROGRESS REPORT ---
Subjective Progress Note for:: 06/28/18 Subjective:: 38-year-old male with a history of asthma hyperlipidemia no history of diabetes mellitus admitted in DKA. His blood sugars are improved improved last night he is going to have a diabetic diet from this morning .we turned off the insulin drip , still on IV fluids at 150 cc/h . Bicarb drip will be stopped today. Patient has no complaints today. He said he is feeling much better. 06/28/2008 7 patient is off the insulin drip patient is off the IV fluids is getting Lantus 30 units twice a day along with insulin sliding scale insulin test blood sugar is 220. And his hemoglobin A1c is 11.9. In the ABG bicarb was improved to 19. Feeling much better. Except complaining of sore throat. He is requesting Magic mouthwash. Afebrile. No acute events in the last 24 hours. Reason For Visit: DKA Physical Exam Vital Signs: Temp Pulse Resp BP Pulse Ox 98.1 F 80 23 H 119/78 95 06/26/18 19:49 06/26/18 07:36 06/26/18 19:52 06/26/18 19:52 06/26/18 19:52 Intake & Output 06/26/18 06/27/18 06/28/18 06:59 06:59 06:59 Intake Total 5265 1452 Output Total 3050 3725 Balance 2215 -2273 Weight 107.4 kg 107.6 kg General appearance: PRESENT: no acute distress Head exam: PRESENT: atraumatic Eye exam: PRESENT: PERRLA Mouth exam: PRESENT: dry mucosa Neck exam: ABSENT: carotid bruit, JVD, lymphadenopathy, thyromegaly Respiratory exam: PRESENT: clear to auscultation carolyn. ABSENT: rales, rhonchi, wheezes Cardiovascular exam: PRESENT: RRR. ABSENT: diastolic murmur, rubs, systolic murmur GI/Abdominal exam: PRESENT: normal bowel sounds, soft. ABSENT: distended, guarding, mass, organolmegaly, rebound, tenderness Neurological exam: PRESENT: alert, awake, oriented to person, oriented to place , oriented to time, oriented to situation, CN II-XII grossly intact. ABSENT: motor sensory deficit Psychiatric exam: PRESENT: appropriate affect, normal mood. ABSENT: homicidal ideation, suicidal ideation Results Laboratory Results: 06/27/18 06:20 06/27/18 06:20 06/26/18 06/26/18 06/26/18 10:42 16:36 22:33 WBC RBC Hgb Hct MCV MCH MCHC RDW Plt Count Seg Neutrophils % Lymphocytes % Monocytes % Eosinophils % Basophils % Absolute Neutrophils Absolute Lymphocytes Absolute Monocytes Absolute Eosinophils Absolute Basophils Sodium 137.5 135.2 L 134.2 L Potassium 4.1 3.5 L 3.9 Chloride 106 104 104 Carbon Dioxide 15 L 17 L 16 L Anion Gap 17 14 14 BUN 25 H 24 H 22 H Creatinine 0.68 0.66 0.59 Est GFR ( Amer) > 60 > 60 > 60 Est GFR (Non-Af Amer) > 60 > 60 > 60 Glucose 360 H 306 H 280 H Calcium 8.6 8.9 9.1 Magnesium Total Bilirubin 1.3 0.7 0.6 AST 29 30 26 ALT 51 57 51 Alkaline Phosphatase 73 75 80 Total Protein 5.6 L 5.9 L 6.0 L Albumin 3.4 L 3.5 3.7 06/27/18 06/27/18 06:20 06:20 WBC 9.2 RBC 4.57 Hgb 14.0 D Hct 39.3 MCV 86 D MCH 30.6 MCHC 35.6 RDW 12.9 Plt Count 163 Seg Neutrophils % 56.6 Lymphocytes % 32.7 Monocytes % 9.1 Eosinophils % 1.3 Basophils % 0.3 Absolute Neutrophils 5.2 Absolute Lymphocytes 3.0 Absolute Monocytes 0.8 Absolute Eosinophils 0.1 Absolute Basophils 0.0 Sodium 135.2 L Potassium 3.5 L Chloride 106 Carbon Dioxide 19 L Anion Gap 10 BUN 21 H Creatinine 0.51 L Est GFR ( Amer) > 60 Est GFR (Non-Af Amer) > 60 Glucose 222 H Calcium 8.9 Magnesium 2.4 H Total Bilirubin 1.0 AST 25 ALT 45 Alkaline Phosphatase 72 Total Protein 5.6 L Albumin 3.3 L 06/25/18 06/25/18 06/26/18 16:25 22:25 04:01 CK-MB (CK-2) 1.79 1.64 1.69 Impressions: Chest X-Ray 06/25/18 08:59 IMPRESSION: NO SIGNIFICANT RADIOGRAPHIC FINDING IN THE CHEST. Assessment & Plan - Diagnosis (1) DKA (diabetic ketoacidoses) Qualifiers: Diabetes mellitus type: other specified (including TIFFANY) Diabetes mellitus complication detail: without coma Qualified Code(s): E13.10 - Other specified diabetes mellitus with ketoacidosis without coma Is this a current diagnosis for this admission?: Yes Plan: 06/25/2018 38-year-old male without any history of diabetes mellitus came with complaints of polyuria and polydipsia blood sugars are found to be in the 864.. Patient was in the DKA with metabolic acidosis with bicarb of 8 and potassium of 6.8. In the emergency room he was given 2 L of normal saline and 10 units of regular insulin subcu along with calcium gluconate. I am going to put him in ICU. He is going to be inpatient. He is going to be n.p.o. I started him on IV fluids normal saline at 120 cc/h. Insulin drip was started as per the protocol. He is going to be on GI prophylaxis with famotidine 20 mg IV twice daily. I am going to check repeat potassium around 4 PM today. CMP was requested every 6 hours. Requested for ABG stat. She was started on sodium bicarb infusion 100 mEq of 2 samples in sterile water at 150 cc/h. Going to check the blood sugars as per the protocol every 1 hour. Harley catheter was placed. Blood cultures sent. Started on levofloxacin 500 mg IV daily. Patient condition is critical. 06/26/2018-patient is admitted with a DKA with blood sugars of 864, bicarb is 8. His blood sugars are improved to 155 this morning. Bicarb was improved to 17. He is off the insulin drip at this time. Was started on Lantus 15 units twice a day and is also on insulin sliding scale. We are going to start him on a diabetic diet today plan to transfer him to the medical floor. Urine analysis shows large ketones at the time of admission. We started him on antibiotics thinking may be the infection triggered the DKA. He is afebrile so far. Hemoglobin A1c came back at 11.9. I am planning to increase the Lantus to 30 units twice a day. We are going to titrate the insulin requirements on daily basis. I think is stable enough to go to the medical floor. Blood cultures are pending. Dietary consult was requested. Diet exercise weight loss was advised. 06/26/2018-patient is admitted with DKA and blood sugars of 864 with a bicarb of 8 latest blood sugars are 220, bicarb is 19. It is much much better. Is on Lantus 30 units twice a day on insulin sliding scale." Increased to 40 units subcu twice a day and continue with the insulin sliding scale. May be tomorrow I will add p.o. diabetic medications along with insulin. Probably need a insulin for a while for the pancreas to recover. A consult was requested. Diet and exercise weight loss was advised. Should be stable enough to go to the medical floor. Hemoglobin A1c is 11.9. (2) Hyperkalemia Is this a current diagnosis for this admission?: Yes Plan: 06/25/2018 patient's potassium is 6.8. He was given insulin 10 units subcu. And given calcium gluconate. We are going to repeat the potassium level this evening. And we also going to check CMP on regular basis. EKG did not show any peaked T waves. Cardiac enzymes x3 was requested. 06/26/2018 patient is admitted with hyperkalemia with potassium is 6.8. Today' s potassium is 4.1. Hyperkalemia is resolved. The going to continue to monitor the potassium levels on daily basis to prevent hypokalemia. 06/28/2018 patient admitted with potassium level of 6.8 today it was 3.5 started on potassium supplementation 20 mg p.o. twice daily. (3) Acute renal failure Is this a current diagnosis for this admission?: Yes Plan: 06/25/2018-patient's baseline creatinine is around 0.7. Today's creatinine is 1.31. AKA may be secondary to uncontrolled diabetes with severe dehydration. Going to check renal panel on daily basis. 06/26/2018 admission creatinine is 1.31. With IV fluids it was improved to 0.6. GFR is more than 60. My opinion AK has resolved. I am going to start him on lisinopril because he is a diabetic to prevent further renal damage. 06/28/2018-patient's admission creatinine is 1.31 with IV fluids due to renal failure resolved. Creatinine today 0.5. AKA may be secondary to uncontrolled diabetes mellitus. (4) Metabolic acidosis due to diabetes mellitus Is this a current diagnosis for this admission?: Yes Plan: 06/25/2018-VBG done in the ER shows pH is 7.16 bicarb is 10.5 PCO2 29. I requested for ABG stat. Patient is going to get samples of 100 mg sodium bicarb each in sterile water at the rate of 150 cc/h. I am going to repeat the ABG later on this evening. 06/26/2018 initial VBG send ABGs done in the ER shows bicarb of 8. He was in metabolic acidosis secondary to uncontrolled diabetes spelled. He was started on IV bicarb and got total of 2 A of 100 mg. Bicarb improved to 17. Latest ABG shows pH of 7.33. PCO2 25. PCO2 is 81. Bicarb is 13.2. We are going to continue to closely monitor the bicarb. 06/27/2018 latest ABG shows bicarb of 19. Received bicarb drip. He is off the bicarb drip right now. At the time of admission he was also tachypneic. Now the respiratory rate is 14-16. Folic acidosis in my opinion resolved. (5) Combined hyperlipidemia Is this a current diagnosis for this admission?: Yes Plan: 06/25/2018 patient is given the history of mixed hyperlipidemia on pravastatin 10 mg p.o. nightly at home. He could keep the patient n.p.o. while he was in DKA. Once he is able to tolerate the oral diet I am going to resume the pravastatin. 06/26/2018 patient is given the history of hyperlipidemia, is on pravastatin 20 mg p.o. nightly at home. We plan to resume the home medication. 06/28/2018 patient has a history of mixed hyperlipidemia on pravastatin 20 mg p.o. daily and we continued his home medications. Lipid panel for today is pending. (6) Asthma Qualifiers: Asthma severity: unspecified severity Is this a current diagnosis for this admission?: Yes Plan: 06/25/2018 patient is given the history of asthma he is using albuterol 2 puffs 4 times daily as needed at home. Patient is not in respiratory distress. On examination chest was clear. 06/27/2018 no complaints of any asthma problems during the hospital stay. We are going to resume his home medications. 06/28/2018-patient has history of asthma uses inhalers at home no problems of asthma exacerbation during the hospital stay. (7) Gout Is this a current diagnosis for this admission?: Yes Plan: 06/25/2018-patient is given the history of gout, he takes allopurinol at home. No complaints of any gout symptoms during the examination. 06/26/2018 patient is taking allopurinol at home for gout we are going to resume the medication today. 06/27/2018 patient history of gout on allopurinol. He started the medication Yesterday. (8) Restless leg syndrome Is this a current diagnosis for this admission?: Yes Plan: 06/25/2018 patient has history of likely restless leg syndrome, he is on Mirapex 0.5 mg at bedtime. Going to hold it for now. 06/26/2018 patient is on Mirapex at home, it is going to be restarted today. 06/28/2018 will continue the Mirapex. - Time Time Spent with patient: 15-24 minutes Smoking Cessation Education: 3 to 10 minutes Medications reviewed and adjusted accordingly: Yes Anticipated discharge: Home
[2018-06-27] MEDS: INSULIN LISPRO 100 UNIT/ML 3 ML VIAL SUBCUT PRN ×4 (08:38→22:40)
[2018-06-27] MEDS: FLUTICASONE NASAL SPRAY 50 MCG/SPRY 120 SPRAY/16 GM NASL SCH (09:15)
[2018-06-27] MEDS: POTASSIUM CHLORIDE 10 MEQ CAPSULE.ER PO SCH ×2 (09:15→22:39)
[2018-06-27] MEDS: ENOXAPARIN SODIUM INJ 40 MG/0.4 ML DISP.SYRIN SUBCUT SCH (09:16)
[2018-06-27] MEDS: OMEGA-3 ACID ETHYL ESTERS 1 GM CAPSULE PO SCH (09:16)
[2018-06-27] MEDS: ALLOPURINOL 100 MG TABLET PO SCH (09:16)
[2018-06-27] MEDS: MULTIVIT-STRESS FORMULA/ZINC TABLET PO SCH (09:16)
[2018-06-27] MEDS: FAMOTIDINE INJ/PF 20 MG/2 ML SDV IV SCH ×2 (09:16→22:40)
[2018-06-27] MEDS: LISINOPRIL 5 MG TABLET PO SCH (09:16)
[2018-06-27] MEDS: NYSTATIN/DEXAMETH/DIPHEN SUSP 120 ML PO SCH ×4 (09:20→22:39)
[2018-06-27] MEDS ORDERED: INSULIN GLARGINE,HUM.REC.ANLOG 1,000 UNIT/10 ML UNIT SUBCUT SCH (10:00)
[2018-06-27] MEDS: LEVOFLOXACIN 500 MG/D5W RTU 500 MG/100 ML RTUPB IV SCH (14:11)
[2018-06-27] MEDS: INSULIN GLARGINE,HUM.REC.ANLOG 1,000 UNIT/10 ML UNIT SUBCUT SCH (17:35)
[2018-06-27] MEDS: PRAMIPEXOLE DI-HCL 0.25 MG TABLET PO SCH (22:40)
[2018-06-27] MEDS: ZOLPIDEM TARTRATE 5 MG TABLET PO PRN (22:57)
[2018-06-28 06:48] LABS: ABSOLUTE EOSINOPHILS # (AUTO) 0.1 10^3/uL (0.0-0.6); ABSOLUTE MONOCYTES (AUTO) 0.6 10^3/uL (0.1-1.4); ABSOLUTE NEUT (AUTO) 2.8 10^3/uL (1.7-8.2); BASOPHILS % (AUTO) 0.4 % (0-2); EOSINOPHILS % (AUTO) 1.8 % (0-6); HEMATOCRIT 40.4 % (37.9-51.0); HEMOGLOBIN 14.1 g/dL (13.5-17.0); LYMPHOCYTES % (AUTO) 36.5 % (13-45); MEAN CORPUSCULAR HEMOGLOBIN 30.2 pg (27.0-33.4); MEAN CORPUSCULAR HGB CONC 34.9 g/dL (32.0-36.0); MEAN CORPUSCULAR VOLUME 86 fl (80-97); MONOCYTES % (AUTO) 10.9 % (3-13); PLATELET COUNT 150 10^3/uL (150-450); RED BLOOD COUNT 4.67 10^6/uL (4.35-5.55); RED CELL DISTRIBUTION WIDTH 12.8 % (11.5-14.0); SEGMENTED NEUTROPHILS % (AUTO) 50.4 % (42-78); TOTAL CELLS COUNTED % (AUTO) 100 %; WHITE BLOOD COUNT 5.6 10^3/uL (4.0-10.5)
[2018-06-28 07:02] LABS: ALANINE AMINOTRANSFERASE 94 U/L (21-72); ALBUMIN 3.3 g/dL (3.5-5.0); ALKALINE PHOSPHATASE 65 U/L (38-126); ANION GAP 11 (5-19); ASPARTATE AMINO TRANSFERASE 80 U/L (17-59); BILIRUBIN,DIRECT 0.3 mg/dL (0.0-0.4); BLOOD UREA NITROGEN 18 mg/dL (7-20); CALCIUM 8.9 mg/dL (8.4-10.2); CARBON DIOXIDE 20 mmol/L (22-30); CHLORIDE 106 mmol/L (98-107); CHOLESTEROL 182.19 mg/dL (0-200); GLUCOSE 196 mg/dL (75-110); POTASSIUM 3.4 mmol/L (3.6-5.0); SODIUM 136.5 mmol/L (137-145); TOTAL PROTEIN 5.5 g/dL (6.3-8.2); TRIGLYCERIDES 299 mg/dL (<150)
[2018-06-28 07:13] LABS: DIRECT LDL 112 mg/dL (<100)
[2018-06-28 07:19] LABS: VLDL CHOLESTEROL 59.8 mg/dL (10-31)
[2018-06-28] MEDS: INSULIN LISPRO 100 UNIT/ML 3 ML VIAL SUBCUT PRN ×2 (08:12→11:52)
[2018-06-28 08:29] VITALS: BP 114/68
[2018-06-28] MEDS: ALLOPURINOL 100 MG TABLET PO SCH (09:13)
[2018-06-28] MEDS: POTASSIUM CHLORIDE 10 MEQ CAPSULE.ER PO SCH (09:13)
[2018-06-28] MEDS: FLUTICASONE NASAL SPRAY 50 MCG/SPRY 120 SPRAY/16 GM NASL SCH (09:13)
[2018-06-28] MEDS: ENOXAPARIN SODIUM INJ 40 MG/0.4 ML DISP.SYRIN SUBCUT SCH (09:14)
[2018-06-28] MEDS: FAMOTIDINE INJ/PF 20 MG/2 ML SDV IV SCH (09:14)
[2018-06-28] MEDS: LISINOPRIL 5 MG TABLET PO SCH (09:16)
[2018-06-28] MEDS: MULTIVIT-STRESS FORMULA/ZINC TABLET PO SCH (09:17)
[2018-06-28] MEDS: INSULIN GLARGINE,HUM.REC.ANLOG 1,000 UNIT/10 ML UNIT SUBCUT SCH (09:17)
[2018-06-28] MEDS: OMEGA-3 ACID ETHYL ESTERS 1 GM CAPSULE PO SCH (09:17)
[2018-06-28] MEDS: NYSTATIN/DEXAMETH/DIPHEN SUSP 120 ML PO SCH (09:17)
[2018-06-28] MEDS ORDERED: INSULIN GLARGINE,HUM.REC.ANLOG 1,000 UNIT/10 ML UNIT SUBCUT SCH (18:00)
--- NOTE | 2018-06-28 18:27 | PDOC DISCHARGE SUMMARY ---
General - Admit/Disc Date/PCP Admission Date/Primary Care Provider: 06/25/18 13:[address] MD Discharge Date: 06/28/18 - Discharge Diagnosis (1) DKA (diabetic ketoacidoses) Is this a current diagnosis for this admission?: Yes Summary: 06/25/2018 38-year-old male without any history of diabetes mellitus came with complaints of polyuria and polydipsia blood sugars are found to be in the 864.. Patient was in the DKA with metabolic acidosis with bicarb of 8 and potassium of 6.8. In the emergency room he was given 2 L of normal saline and 10 units of regular insulin subcu along with calcium gluconate. I am going to put him in ICU. He is going to be inpatient. He is going to be n.p.o. I started him on IV fluids normal saline at 120 cc/h. Insulin drip was started as per the protocol. He is going to be on GI prophylaxis with famotidine 20 mg IV twice daily. I am going to check repeat potassium around 4 PM today. CMP was requested every 6 hours. Requested for ABG stat. She was started on sodium bicarb infusion 100 mEq of 2 samples in sterile water at 150 cc/h. Going to check the blood sugars as per the protocol every 1 hour. Nichols catheter was placed. Blood cultures sent. Started on levofloxacin 500 mg IV daily. Patient condition is critical. 06/26/2018-patient is admitted with a DKA with blood sugars of 864, bicarb is 8. His blood sugars are improved to 155 this morning. Bicarb was improved to 17. He is off the insulin drip at this time. Was started on Lantus 15 units twice a day and is also on insulin sliding scale. We are going to start him on a diabetic diet today plan to transfer him to the medical floor. Urine analysis shows large ketones at the time of admission. We started him on antibiotics thinking may be the infection triggered the DKA. He is afebrile so far. Hemoglobin A1c came back at 11.9. I am planning to increase the Lantus to 30 units twice a day. We are going to titrate the insulin requirements on daily basis. I think is stable enough to go to the medical floor. Blood cultures are pending. Dietary consult was requested. Diet exercise weight loss was advised. 06/27/2018-patient is admitted with DKA and blood sugars of 864 with a bicarb of 8 latest blood sugars are 220, bicarb is 19. It is much much better. Is on Lantus 30 units twice a day on insulin sliding scale." Increased to 40 units subcu twice a day and continue with the insulin sliding scale. May be tomorrow I will add p.o. diabetic medications along with insulin. Probably need a insulin for a while for the pancreas to recover. A consult was requested. Diet and exercise weight loss was advised. Should be stable enough to go to the medical floor. Hemoglobin A1c is 11.9. 06/28/2018-today's blood sugars are 192. Patient is feeling much much better. He is on Lantus 40 units subcu daily. Also on insulin sliding scale. He is expressing desire to go home. His metabolic acidosis was resolved. Give him a prescription for glucometer machine, supplies, Lantus 40 units subcu twice a day , and a Humalog sliding scale. To follow-up with his primary care physician Emmanuel armijo in 3 days. (2) Hyperkalemia Is this a current diagnosis for this admission?: Yes Summary: 06/25/2018 patient's potassium is 6.8. He was given insulin 10 units subcu. And given calcium gluconate. We are going to repeat the potassium level this evening. And we also going to check CMP on regular basis. EKG did not show any peaked T waves. Cardiac enzymes x3 was requested. 06/26/2018 patient is admitted with hyperkalemia with potassium is 6.8. Today' s potassium is 4.1. Hyperkalemia is resolved. The going to continue to monitor the potassium levels on daily basis to prevent hypokalemia. 06/27/2018 patient admitted with potassium level of 6.8 today it was 3.5 started on potassium supplementation 20 mg p.o. twice daily. 06/28/2018 admission potassium is 4.8. Today it was 3.4. I gave the prescription for potassium 20 mg p.o. daily for 5 days. Advised him to follow- up with primary care physician for further lab work. (3) Acute renal failure Is this a current diagnosis for this admission?: Yes Summary: 06/25/2018-patient's baseline creatinine is around 0.7. Today's creatinine is 1.31. AKA may be secondary to uncontrolled diabetes with severe dehydration. Going to check renal panel on daily basis. 06/26/2018 admission creatinine is 1.31. With IV fluids it was improved to 0.6. GFR is more than 60. My opinion AK has resolved. I am going to start him on lisinopril because he is a diabetic to prevent further renal damage. 06/27/2018-patient's admission creatinine is 1.31 with IV fluids due to renal failure resolved. Creatinine today 0.5. AKA may be secondary to uncontrolled diabetes mellitus. 06/28/2018 admission creatinine is 1.31 and the renal failure is resolved with IV fluids. Latest creatinine is 0.45. (4) Metabolic acidosis due to diabetes mellitus Is this a current diagnosis for this admission?: Yes Summary: 06/25/2018-VBG done in the ER shows pH is 7.16 bicarb is 10.5 PCO2 29. I requested for ABG stat. Patient is going to get samples of 100 mg sodium bicarb each in sterile water at the rate of 150 cc/h. I am going to repeat the ABG later on this evening. 06/26/2018 initial VBG send ABGs done in the ER shows bicarb of 8. He was in metabolic acidosis secondary to uncontrolled diabetes spelled. He was started on IV bicarb and got total of 2 A of 100 mg. Bicarb improved to 17. Latest ABG shows pH of 7.33. PCO2 25. PCO2 is 81. Bicarb is 13.2. We are going to continue to closely monitor the bicarb. 06/27/2018 latest ABG shows bicarb of 19. Received bicarb drip. He is off the bicarb drip right now. At the time of admission he was also tachypneic. Now the respiratory rate is 14-16. Folic acidosis in my opinion resolved. 06/28/2018 patient was admitted with a bicarb of 8 today it was 20. Metabolic acidosis resolved. It is resolved because of the better control of the blood sugars. (5) Combined hyperlipidemia Is this a current diagnosis for this admission?: Yes Summary: 06/28/2018 patient has history of combined hyperlipidemia on pravastatin at home advised him to continue the current medications once he is discharged. (6) Asthma Is this a current diagnosis for this admission?: Yes Summary: 06/25/2018 patient is given the history of asthma he is using albuterol 2 puffs 4 times daily as needed at home. Patient is not in respiratory distress. On examination chest was clear. 06/27/2018 no complaints of any asthma problems during the hospital stay. We are going to resume his home medications. 06/28/2018-patient has history of asthma uses inhalers at home no problems of asthma exacerbation during the hospital stay. (7) Gout Is this a current diagnosis for this admission?: Yes Summary: 06/25/2018-patient is given the history of gout, he takes allopurinol at home. No complaints of any gout symptoms during the examination. 06/26/2018 patient is taking allopurinol at home for gout we are going to resume the medication today. 06/27/2018 patient history of gout on allopurinol. He started the medication Yesterday. 06/28/2018 patient has history of gout on allopurinol which was restarted during the hospital stay no episodes of acute gout attacks in the hospital advised him to continue allopurinol at home. (8) Restless leg syndrome Is this a current diagnosis for this admission?: Yes Summary: 06/25/2018 patient has history of likely restless leg syndrome, he is on Mirapex 0.5 mg at bedtime. Going to hold it for now. 06/26/2018 patient is on Mirapex at home, it is going to be restarted today. 06/27/2018 will continue the Mirapex. 06/28/2018-patient has history of restless leg syndrome on Mirapex no complaints during the hospital stay. - Additional Information Resuscitation Status: Full Code Discharge Diet: Diabetic Discharge Activity: Activity As Tolerated Prescriptions: Insulin Glargine,Hum.rec.anlog [Lantus Insulin 100 Unit/1 ml 10 ml] 45 unit SUBCUT BID 10 Days #2 vial Potassium Chloride [Klor-Con 10 Meq Capsule ER] 20 meq PO Q12 #10 capsule.er Home Medications: Allopurinol 1 tab PO DAILY 12/12/13 Albuterol Sulfate [Proair HFA Inhalation Aerosol 8.5 gm MDI] 2 puff IH Q4HP PRN 06/25/18 Fluticasone Propionate [Flonase Nasal [place] 50 Mcg/[place] 16 gm] 2 sprays NASL DAILY 06/25/18 [place]-3 Fatty Acids/Fish Oil [[place] 3 Fish Oil Softgel] 1 each PO DAILY Pramipexole Di-HCl [Mirapex 0.25 mg Tablet] 0.25 mg PO QHS 06/25/18 Pravastatin Sodium [Pravachol] 10 mg PO QHS 06/25/18 Zolpidem Tartrate [Ambien] 10 mg PO QHS PRN 06/25/18 Insulin Glargine,Hum.rec.anlog [Lantus Insulin 100 Unit/1 ml 10 ml] 45 unit SUBCUT BID 10 Days #2 vial 06/28/18 Insulin Lispro [Humalog Insulin (Lispro) 100 unit/mL] 0 - 12 unit SUBCUT ACHSP PRN unit 06/28/18 Lisinopril [Prinivil 5 mg Tablet] 5 mg PO DAILY tablet 06/28/18 Normal Saline [Saline Flush 2.5 ml Monoject Prefil Syrin] 2.5 ml IV Q8 disp.syrin 06/28/18 Potassium Chloride [Klor-Con 10 Meq Capsule ER] 20 meq PO Q12 #10 capsule.er History of Present Illness History of Present Illness: ROSA NICHOLS is a 38 year old male with history of asthma, restless leg syndrome, gout, hyperlipidemia, insomnia notably without any history of diabetes , came to the emergency room with complaints of severe dry mouth and going to the restroom around the clock for the last few days. He is given the history of having a head cold 3-1/2 weeks ago and started using Sudafed/Mucinex as recommended he got better but the cough persisted and went to urgent care 2 weeks ago he was started on 40 mg prednisone for 5 days and given Flonase after that he is continued to have insomnia dry mouth being like how developed sores on the tongue, denies any fever denies any chills complaint of nausea denies any vomiting and diarrhea associated with the very poor appetite decided to came to the emergency room to today for further management. Denies any urinary tract infection. Has any chest pains. Denies any headaches dizziness syncope. ER physician did the blood work found to have a blood sugar of 864 he was given 2 L of IV fluids and potassium is found out to be 6.8 he was given 10 units of regular insulin along with calcium gluconate and called for admission. When I went there patient was without any IV fluids and not on insulin drip. At the time of examination patient has difficulty in talking because of severe dryness of the mouth and but otherwise is alert and awake oriented. Hospital Course Hospital Course: 06/28/2000 [id number] man admitted with a DKA with blood sugars of 864 at the time of admission and ABG shows bicarb of 8 he was started on IV fluids, insulin drip, IV bicarb drip he was placed in ICU and he gets to show slow and rapid recovery. No complications while he was in the hospital. His hemoglobin A1c is 11.9. Acute renal failure also resolved. His blood sugar latest one is 1 02/12/1992. And bicarb is 20. Patient requested to go home today. Advised him to follow-up with the primary care physician in 3 days time. Physical Exam Vital Signs: Temp Pulse Resp BP Pulse Ox 98.5 F 83 14 114/68 98 06/28/18 10:55 06/28/18 10:55 06/28/18 10:55 06/28/18 10:55 06/28/18 10:55 Intake & Output 06/27/18 06/28/18 06/29/18 06:59 06:59 06:59 Intake Total 1452 2838 222 Output Total 3725 2750 Balance -2273 88 222 Weight 107.6 kg 107.2 kg General appearance: PRESENT: no acute distress Head exam: PRESENT: atraumatic Eye exam: PRESENT: PERRLA Mouth exam: PRESENT: moist Neck exam: ABSENT: carotid bruit, JVD, lymphadenopathy, thyromegaly Respiratory exam: PRESENT: clear to auscultation carolyn. ABSENT: rales, rhonchi, wheezes Cardiovascular exam: PRESENT: RRR. ABSENT: diastolic murmur, rubs, systolic murmur GI/Abdominal exam: PRESENT: normal bowel sounds, soft. ABSENT: distended, guarding, mass, organolmegaly, rebound, tenderness Neurological exam: PRESENT: alert, awake, oriented to person, oriented to place , oriented to time, oriented to situation, CN II-XII grossly intact. ABSENT: motor sensory deficit Results Laboratory Results: 06/28/18 06:17 06/28/18 06:17 06/28/18 06/28/18 06:17 06:17 WBC 5.6 RBC 4.67 Hgb 14.1 Hct 40.4 MCV 86 MCH 30.2 MCHC 34.9 RDW 12.8 Plt Count 150 Seg Neutrophils % 50.4 Lymphocytes % 36.5 Monocytes % 10.9 Eosinophils % 1.8 Basophils % 0.4 Absolute Neutrophils 2.8 Absolute Lymphocytes 2.0 Absolute Monocytes 0.6 Absolute Eosinophils 0.1 Absolute Basophils 0.0 Sodium 136.5 L Potassium 3.4 L Chloride 106 Carbon Dioxide 20 L Anion Gap 11 BUN 18 Creatinine 0.47 L Est GFR ( Amer) > 60 Est GFR (Non-Af Amer) > 60 Glucose 196 H Calcium 8.9 Magnesium 2.3 Total Bilirubin 1.0 AST 80 H ALT 94 H Alkaline Phosphatase 65 Total Protein 5.5 L Albumin 3.3 L Triglycerides 299 H Cholesterol 182.19 LDL Cholesterol Direct 112 H VLDL Cholesterol 59.8 H HDL Cholesterol 36 L 06/25/18 06/25/18 06/26/18 16:25 22:25 04:01 CK-MB (CK-2) 1.79 1.64 1.69 Impressions: Chest X-Ray 06/25/18 08:59 IMPRESSION: NO SIGNIFICANT RADIOGRAPHIC FINDING IN THE CHEST. Qualifiers - * PATIENT BEING DISCHARGED WITH ANY OF THE FOLLOWING DIAGNOSIS: No VTE patient discharged on overlapping Therapy?: Yes
== END 2018-06-28 11:57 | disposition home or self-care (01) | DRG 638 ==
LOC: ER 08:12 → EH 13:01 → ICU 13:45
PROVIDERS: ADMIT Family Medicine; ATTEND Family Medicine
DX: E13.10 Other specified diabetes mellitus with ketoacidosis without coma (principal); N17.9 Acute kidney failure, unspecified; E87.5 Hyperkalemia; J45.909 Unspecified asthma, uncomplicated; M10.9 Gout, unspecified; G25.81 Restless legs syndrome; G47.00 Insomnia, unspecified; E78.2 Mixed hyperlipidemia; Z79.899 Other long term (current) drug therapy; Z88.0 Allergy status to penicillin; Z88.2 Allergy status to sulfonamides; Z82.49 Family history of ischemic heart disease and other diseases of the circulatory system; Z83.3 Family history of diabetes mellitus; Z80.3 Family history of malignant neoplasm of breast
CPT/HCPCS: 36415; 71045; 80048; 80053; 80061; 81001; 82550; 82553; 82803; 82962; 83036; 83605; 83735; 84100; 84484; 85025; 87040; 87070; 87804; 87880; 93005; 93010; 96361; 96374; 99285; J0610; J1650; J1815; J1956; J2060; J2405; J3490; J7030; S0028

== ENCOUNTER → 2018-10-27 | Outpatient (CLI) | payer BC ==
[2018-10-27 11:23] LABS: ABSOLUTE BASOPHILS # (AUTO) 0.1 10^3/uL (0.0-0.2); ABSOLUTE EOSINOPHILS # (AUTO) 0.3 10^3/uL (0.0-0.6); ABSOLUTE LYMPHOCYTES (AUTO) 1.6 10^3/uL (0.5-4.7); ABSOLUTE MONOCYTES (AUTO) 0.4 10^3/uL (0.1-1.4); ABSOLUTE NEUT (AUTO) 3.5 10^3/uL (1.7-8.2); BASOPHILS % (AUTO) 1.2 % (0-2); EOSINOPHILS % (AUTO) 5.2 % (0-6); HEMOGLOBIN 16.7 g/dL (13.5-17.0); LYMPHOCYTES % (AUTO) 27.7 % (13-45); MEAN CORPUSCULAR HEMOGLOBIN 29.5 pg (27.0-33.4); MEAN CORPUSCULAR VOLUME 87 fl (80-97); MONOCYTES % (AUTO) 7.3 % (3-13); PLATELET COUNT 195 10^3/uL (150-450); RED BLOOD COUNT 5.65 10^6/uL (4.35-5.55); RED CELL DISTRIBUTION WIDTH 13.3 % (11.5-14.0); SEGMENTED NEUTROPHILS % (AUTO) 58.6 % (42-78); TOTAL CELLS COUNTED % (AUTO) 100 %; WHITE BLOOD COUNT 5.9 10^3/uL (4.0-10.5)
[2018-10-27 12:03] LABS: ALANINE AMINOTRANSFERASE 85 U/L (21-72); ALBUMIN 4.7 g/dL (3.5-5.0); ALKALINE PHOSPHATASE 51 U/L (38-126); ANION GAP 11 (5-19); ASPARTATE AMINO TRANSFERASE 46 U/L (17-59); BILIRUBIN,DIRECT 0.5 mg/dL (0.0-0.4); BILIRUBIN,TOTAL 1.1 mg/dL (0.2-1.3); BLOOD UREA NITROGEN 13 mg/dL (7-20); CALCIUM 10.1 mg/dL (8.4-10.2); CARBON DIOXIDE 27 mmol/L (22-30); CHLORIDE 104 mmol/L (98-107); CHOLESTEROL 158.84 mg/dL (0-200); GLUCOSE 101 mg/dL (75-110); POTASSIUM 4.4 mmol/L (3.6-5.0); SODIUM 141.8 mmol/L (137-145); TOTAL PROTEIN 7.4 g/dL (6.3-8.2); TRIGLYCERIDES 179 mg/dL (<150); URIC ACID 7.3 mg/dL (3.5-8.5)
[2018-10-27 12:14] LABS: DIRECT LDL 96 mg/dL (<100)
[2018-10-27 12:25] LABS: VLDL CHOLESTEROL 35.8 mg/dL (10-31)
[2018-10-28 11:38] LABS: MICROALBUMIN URINE <3.0 ug/mL (Not Estab.)
== END ==
LOC: OD 09:58
PROVIDERS: ATTEND Physician Assistant
DX: E78.2 Mixed hyperlipidemia (principal); E11.9 Type 2 diabetes mellitus without complications; E79.0 Hyperuricemia without signs of inflammatory arthritis and tophaceous disease
CPT/HCPCS: 80053; 80061; 82043; 82570; 84550; 85025

== ENCOUNTER → 2019-05-12 | Outpatient (CLI) | payer BC ==
[2019-05-12 09:26] LABS: ALBUMIN 4.7 g/dL (3.5-5.0); ALKALINE PHOSPHATASE 54 U/L (38-126); ANION GAP 9 (5-19); ASPARTATE AMINO TRANSFERASE 34 U/L (17-59); BILIRUBIN,DIRECT 0.2 mg/dL (0.0-0.4); BILIRUBIN,TOTAL 0.6 mg/dL (0.2-1.3); BLOOD UREA NITROGEN 13 mg/dL (7-20); CALCIUM 9.5 mg/dL (8.4-10.2); CARBON DIOXIDE 27 mmol/L (22-30); CHLORIDE 104 mmol/L (98-107); CHOLESTEROL 185.47 mg/dL (0-200); GLUCOSE 101 mg/dL (75-110); POTASSIUM 4.7 mmol/L (3.6-5.0); TOTAL PROTEIN 7.7 g/dL (6.3-8.2); URIC ACID 7.1 mg/dL (3.5-8.5)
[2019-05-12 09:38] LABS: DIRECT LDL 74 mg/dL (<100); TRIGLYCERIDES 579 mg/dL (<150)
== END ==
LOC: LAB 08:41
PROVIDERS: ATTEND Physician Assistant
DX: E11.69 Type 2 diabetes mellitus with other specified complication (principal); E78.2 Mixed hyperlipidemia; E79.0 Hyperuricemia without signs of inflammatory arthritis and tophaceous disease
CPT/HCPCS: 36415; 80053; 80061; 84550

== ENCOUNTER → 2019-06-02 | Outpatient (CLI) | payer BC ==
[2019-06-02 13:03] LABS: ALBUMIN 5.1 g/dL (3.5-5.0); ALKALINE PHOSPHATASE 64 U/L (38-126); ANION GAP 12 (5-19); ASPARTATE AMINO TRANSFERASE 47 U/L (17-59); BILIRUBIN,DIRECT 0.1 mg/dL (0.0-0.4); BLOOD UREA NITROGEN 12 mg/dL (7-20); CALCIUM 10.2 mg/dL (8.4-10.2); CARBON DIOXIDE 26 mmol/L (22-30); CHLORIDE 103 mmol/L (98-107); CHOLESTEROL 206.49 mg/dL (0-200); GLUCOSE 103 mg/dL (75-110); POTASSIUM 4.6 mmol/L (3.6-5.0); TOTAL PROTEIN 8.3 g/dL (6.3-8.2); TRIGLYCERIDES 178 mg/dL (<150)
[2019-06-02 13:15] LABS: DIRECT LDL 129 mg/dL (<100)
[2019-06-02 13:31] LABS: VLDL CHOLESTEROL 35.6 mg/dL (10-31)
== END ==
LOC: LAB 12:09
PROVIDERS: ATTEND Physician Assistant
DX: E78.2 Mixed hyperlipidemia (principal); E79.0 Hyperuricemia without signs of inflammatory arthritis and tophaceous disease; R94.5 Abnormal results of liver function studies
CPT/HCPCS: 36415; 80053; 80061; 84550

== ENCOUNTER → 2019-11-04 | Outpatient (CLI) | payer BC ==
[2019-11-04 08:08] LABS: ABSOLUTE EOSINOPHILS # (AUTO) 0.3 10^3/uL (0.0-0.6); ABSOLUTE LYMPHOCYTES (AUTO) 1.8 10^3/uL (0.5-4.7); ABSOLUTE MONOCYTES (AUTO) 0.5 10^3/uL (0.1-1.4); BASOPHILS % (AUTO) 0.6 % (0-2); EOSINOPHILS % (AUTO) 4.3 % (0-6); HEMATOCRIT 48.5 % (37.9-51.0); HEMOGLOBIN 16.9 g/dL (13.5-17.0); LYMPHOCYTES % (AUTO) 26.9 % (13-45); MEAN CORPUSCULAR HEMOGLOBIN 30.3 pg (27.0-33.4); MEAN CORPUSCULAR HGB CONC 34.8 g/dL (32.0-36.0); MEAN CORPUSCULAR VOLUME 87 fl (80-97); MONOCYTES % (AUTO) 7.8 % (3-13); PLATELET COUNT 202 10^3/uL (150-450); RED BLOOD COUNT 5.57 10^6/uL (4.35-5.55); RED CELL DISTRIBUTION WIDTH 13.4 % (11.5-14.0); SEGMENTED NEUTROPHILS % (AUTO) 60.4 % (42-78); TOTAL CELLS COUNTED % (AUTO) 100 %; WHITE BLOOD COUNT 6.7 10^3/uL (4.0-10.5)
[2019-11-04 08:30] LABS: ALKALINE PHOSPHATASE 57 U/L (38-126); ANION GAP 11 (5-19); ASPARTATE AMINO TRANSFERASE 36 U/L (17-59); BILIRUBIN,TOTAL 0.7 mg/dL (0.2-1.3); BLOOD UREA NITROGEN 11 mg/dL (7-20); CALCIUM 10.1 mg/dL (8.4-10.2); CARBON DIOXIDE 25 mmol/L (22-30); CHLORIDE 102 mmol/L (98-107); CHOLESTEROL 193.45 mg/dL (0-200); GLUCOSE 137 mg/dL (75-110); POTASSIUM 4.6 mmol/L (3.6-5.0); TOTAL PROTEIN 7.7 g/dL (6.3-8.2); TRIGLYCERIDES 290 mg/dL (<150); URIC ACID 7.2 mg/dL (3.5-8.5)
[2019-11-04 08:41] LABS: DIRECT LDL 111 mg/dL (<100)
== END ==
LOC: OD 07:20
PROVIDERS: ATTEND Physician Assistant
DX: E78.2 Mixed hyperlipidemia (principal); E79.0 Hyperuricemia without signs of inflammatory arthritis and tophaceous disease; Z79.899 Other long term (current) drug therapy
CPT/HCPCS: 36415; 80053; 80061; 84550; 85025

== ENCOUNTER → 2020-02-02 | Outpatient (CLI) | payer BC ==
[2020-02-02 09:00] LABS: ALBUMIN 4.8 g/dL (3.5-5.0); ALKALINE PHOSPHATASE 56 U/L (38-126); ANION GAP 8 (5-19); ASPARTATE AMINO TRANSFERASE 58 U/L (17-59); BILIRUBIN,TOTAL 0.7 mg/dL (0.2-1.3); BLOOD UREA NITROGEN 10 mg/dL (7-20); CALCIUM 9.9 mg/dL (8.4-10.2); CARBON DIOXIDE 25 mmol/L (22-30); CHLORIDE 104 mmol/L (98-107); GLUCOSE 153 mg/dL (75-110); POTASSIUM 4.4 mmol/L (3.6-5.0); TOTAL PROTEIN 7.7 g/dL (6.3-8.2)
[2020-02-03 10:37] LABS: CREATININE URINE 79.4 mg/dL (Not Estab.); MICROALBUMIN URINE 4.7 ug/mL (Not Estab.)
== END ==
LOC: OD 08:17
PROVIDERS: ATTEND Physician Assistant
DX: E79.0 Hyperuricemia without signs of inflammatory arthritis and tophaceous disease (principal); E11.69 Type 2 diabetes mellitus with other specified complication
CPT/HCPCS: 36415; 80053; 82043; 82570; 83036; 83525; 84550

== ENCOUNTER → 2020-08-07 | Outpatient (CLI) | payer BC ==
[~2020-08-07] MED LIST: COVID-19 VACCINE (PFIZER)/PF 30 MCG/0.3 ML VIAL IM ONE; EPINEPHRINE INJ/PF 1 MG/1 ML AMPULE IM PRN
== END ==
LOC: EMPHEALTH 13:01
PROVIDERS: ATTEND Internal Medicine
DX: Z23 Encounter for immunization (principal)
CPT/HCPCS: 91300